=== PATIENT | male | born 1970 | race Caucasian/White ===

== ENCOUNTER 2017-10-03 07:18 | Inpatient (IN) ==
[2017-10-03] MEDS ORDERED: 0.9 % Sodium Chloride 1,000 ML IVC ONE ×5 (07:25→10:56)
[2017-10-03] MEDS ORDERED: 0.9 % Sodium Chloride 1,000 ML ONE (07:39)
--- NOTE | 2017-10-03 07:49 | Emergency Department Note ---
Disposition Clinical Impression: EDWAR (acute kidney injury), Ileus, Septic shock Sepsis Qualifiers: Sepsis type: sepsis due to unspecified organism Qualified Code(s): A41.9 - Sepsis, unspecified organism Disposition: Admitted As Inpatient Condition: Serious Time of Disposition: 11:48 General Adult HPI - General Stated complaint: Abdominal pain Time Seen by Provider: 10/03/17 07:25 Source: EMS Limitations: no limitations Nursing Notes Reviewed: Yes Vital Signs Reviewed: Yes - History of Present Illness HPI Narrative: Patient presents to the ED complaining of seeing wine a syncopal episode. Patient states when he woke up today he was seen why. He walked to the couch and passed out. States that having abdominal pain for a couple days. Was evaluated here 2 days ago. Denies passing any blood. Denies vomiting blood. States he is having diarrhea. No fever. Pain Scale: 8 - Related Data Home Medications Medication Instructions Recorded Confirmed Diazepam [Valium] 5 mg PO BID PRN 05/02/15 10/03/17 Meclizine [Antivert] 25 mg PO TID 05/02/15 10/03/17 Cholecalciferol (Vitamin D3) 50,000 unit PO MOFR 11/22/16 10/03/17 [Vitamin D] Diltiazem SR (12hr) [Cardizem SR] 120 mg PO DAILY 11/22/16 10/03/17 Folic Acid 1 mg PO DAILY 11/22/16 10/03/17 Lisinopril [Zestril] 20 mg PO DAILY 11/22/16 10/03/17 Atorvastatin [Lipitor] 10 mg PO HS 10/03/17 10/03/17 Previous Rx's Medication Instructions Recorded Metoprolol [Lopressor] 25 mg PO BID #60 tablet 06/16/15 Allergies Allergy/AdvReac Type Severity Reaction Status Date / Time Iodinated Contrast- Oral and AdvReac Mild Nausea Verified 10/03/17 08:09 IV Dye Hydromorphone [From Dilaudid] AdvReac Migraine Verified 08/29/17 14:50 Constitutional: Denies: fever Gastrointestinal: Reports: abdominal pain, nausea, diarrhea. Denies: vomiting Past Medical History - Past Medical History Medical history: Reports: hypertension Surgical history: Reports: cholecystectomy, orthopedic, other Psychiatric history: Reports: anxiety, depression - Social History Smoking Status: Never smoker Smokeless Tobacco Status: Yes Alcohol use: Reports: none Drug use: Reports: none Physical Exam Patient awake alert. Pale. Diaphoretic. Upper and mid abdominal tenderness. Exam limited secondary to obesity. Lungs clear. - General Limitations: no limitations General appearance: alert - Head Head exam: atraumatic - Eye Eye exam: Present: normal appearance - ENT ENT exam: normal exam - Neck Neck exam: Present: normal inspection - Chest Chest inspection: Present: normal inspection - Respiratory Respiratory exam: Present: normal lung sounds bilaterally - Cardiovascular Cardiovascular exam: Present: bradycardia - Abdominal Exam Abdominal exam: Present: soft, tenderness. Absent: distention, guarding, rebound Course - Reevaluation(s) Reevaluation #1: Rectal exam Hemoccult negative. EKG so some slight elevations in 2 inferior leads. The less than a millimeter. Patient is reevaluated and not having any chest pain or difficulty in breathing. His pain is on his abdomen reproducible. I attempted a bedside ultrasound but unable to visualize his aorta secondary to his large body habitus. We will repeat CT scan. At this time try and do decipher the patient has a true contrast allergy this listed. Alert T was called. Patient has 2 large-bore IVs and 2 L of normal saline infusing. Color is improved. Feeling better. Crash cart at bedside. Time: 07:49 Reevaluation #2: Review chart from last visit that showed an abnormal abdominal CT an elevated white blood cell count of 19,000. Question sepsis but unclear why he is bradycardic at this time. We will repeat an EKG when he returns from CT scan. Time: 08:25 Time: 08:42 - Consultations Consultation #2: Dr Mcmahon to see in colsult. Aware of EDWAR and contrast blous given. Time: 10:23 Consultation #3: Evaluated by ICU. No bed Available. Will order further IV fluids and reevaluate for possible step down admission if able to wean off Levophed. Time: 10:57 Additional Consultation(s): [address] Antoine called as he has seen the patient in the past Vital Signs Temperature 97.7 F 10/03/17 07:24 Pulse Rate 47 10/03/17 07:24 Respiratory Rate 14 10/03/17 07:24 Blood Pressure 66/37 10/03/17 07:24 O2 Sat by Pulse Oximetry 96 10/03/17 07:24 Temperature 97.7 F 10/03/17 07:24 Pulse Rate 51 10/03/17 18:00 Respiratory Rate 16 10/03/17 18:00 Blood Pressure 113/69 10/03/17 18:00 O2 Sat by Pulse Oximetry 100 10/03/17 18:00 Oxygen Delivery Oxygen Delivery Room Air,Nasal Cannula Procedures - Central Line Placement Right IJ Central Line Inserted*: Yes Central Line Insertion: emergent Consent Obtained: written consent Procedural Pause: verify patient name and date of , timeout performed per policy, vandana and assess the site, assemble equipment and verify supplies, perform hand hygiene Patient Placed on Monitor/Pulse Ox: Yes During the Procedure: clinician is wearing sterile gloves, cap, mask,& gown during insertion, sterile field and sterile technique are maintained, patient's face is covered with drape or mask and wearing a cap, everyone in room is wearing a mask Central Line Prep: Chlorhexidine scrub Prep the Procedure Site: apply chloraprep to the skin using a back and forth scrubbing motion, apply chloraprep for 30 seconds (upper body), 1-2 min ( femoral sites), allow prep to dry, drape the patient with a full body drape Local Anesthetic: lidocaine 1% Amount of anesthesia used (mL): 5 Ultrasound Used for Placement: Yes Central Line Lumen Inserted: triple Post Procedure: sutured in place, good blood return, all ports aspirated, flushed, capped, sterile dressing applied, guide wire removed and visualized Post Procedure X-Ray: tip of catheter in good position, no pneumothorax seen Patient Tolerated Procedure: well, no complications Clinician Assisting/Completing Checklist: Line placed by myself with complications. Time: 10:09 Medical Decision Making - Lab Data Result diagrams: 10/03/17 07:42 10/03/17 07:42 Lab Results 10/03/17 10/03/17 10/03/17 Range/Units 07:42 07:42 07:42 WBC 17.2 H (4.3-11.1) K/mcL RBC 4.56 (4.19-5.50) M/mcL Hgb 13.5 D (12.9-16.9) g/dL Hct 42.1 (37.5-50.1) % MCV 92.3 (83.0-100.0) fL MCH 29.6 (28.0-33.3) pg MCHC 32.1 (31.6-35.5) g/dL RDW 12.8 (11.5-14.5) % Plt Count 297 (140-400) K/mcL MPV 10.4 (9.4-12.4) fL Immature Gran % 0.6 (0-4) % Seg Neutrophils % 66.5 % Lymphocytes % 20.9 % Monocytes % 11.1 % Eosinophils % 0.6 % Basophils % 0.3 % Neutrophils # 11.5 H (1.6-8.9) K/mcL Lymphocytes # 3.6 (0.6-4.6) K/mcL Monocytes # 1.9 H (0.0-1.3) K/mcL Eosinophils # 0.1 (0.0-0.6) K/mcL Basophils # 0.1 (0.0-0.2) K/mcL PT (9.4-12.1) Seconds INR APTT (26.0-36.0) Seconds Sodium (136-145) mEq/L Potassium (3.5-5.1) mEq/L Chloride (98-107) mEq/L Carbon Dioxide (23-29) mEq/L BUN (6-20) mg/dL Creatinine (0.70-1.30) mg/dL Est GFR ( Amer) (> 60) Est GFR (Non-Af Amer) (> 60) BUN/Creatinine Ratio (6-26) Glucose (70-105) mg/dL Est Mean Plasma Glucose mg/dl Hemoglobin A1c ( - 5.6) % Calculated Osmolality (280-300) Lactic Acid 1.8 (0.5-2.2) mmol/L Calcium (8.6-10.3) mg/dL Total Bilirubin (0.3-1.0) mg/dL Direct Bilirubin (0.0-0.2) mg/dL Indirect Bilirubin (0.0-1.2) mg/dL AST (13-39) Units/L ALT (7-52) Units/L Alkaline Phosphatase (34-104) Units/L Troponin I < 0.03 (< 0.04) ng/mL Serum Total Protein (6.4-8.9) g/dL Albumin (3.5-5.7) g/dL Globulin (2.4-3.5) g/dL Albumin/Globulin Ratio (1.1-2.2) Amylase (29-103) Units/L Lipase (11-82) Units/L Urine Color (Yellow) Urine Clarity (Clear) Urine pH (5.0-8.0) pH Units Ur Specific [place] (1.010-1.025) Urine Protein (Neg-Trace) mg/dL Urine Glucose (UA) (Normal) mg/dL Urine Ketones (Negative) mg/dL Urine Blood (Negative) Urine Nitrite (Negative) Urine Bilirubin (Negative) Urine Urobilinogen (Normal) mg/dL Ur Leukocyte Esterase (Negative) Urine Microscopic RBC (0-3) per hpf Urine Microscopic WBC (0-3) per hpf Ur Squamous Epith Cells (None-Few) per lpf Urine Bacteria (None-Few) per hpf Hyaline Casts (None-Few) per lpf Granular Casts (None Seen) per lpf Ur Culture Indicated? (NO) Blood Type Antibody Screen 10/03/17 10/03/17 10/03/17 Range/Units 07:42 07:42 07:42 WBC (4.3-11.1) K/mcL RBC (4.19-5.50) M/mcL Hgb (12.9-16.9) g/dL Hct (37.5-50.1) % MCV (83.0-100.0) fL MCH (28.0-33.3) pg MCHC (31.6-35.5) g/dL RDW (11.5-14.5) % Plt Count (140-400) K/mcL MPV (9.4-12.4) fL Immature Gran % (0-4) % Seg Neutrophils % % Lymphocytes % % Monocytes % % Eosinophils % % Basophils % % Neutrophils # (1.6-8.9) K/mcL Lymphocytes # (0.6-4.6) K/mcL Monocytes # (0.0-1.3) K/mcL Eosinophils # (0.0-0.6) K/mcL Basophils # (0.0-0.2) K/mcL PT 13.7 H (9.4-12.1) Seconds INR 1.3 APTT 30.3 (26.0-36.0) Seconds Sodium 128 L (136-145) mEq/L Potassium 4.9 (3.5-5.1) mEq/L Chloride 99 (98-107) mEq/L Carbon Dioxide 19 L (23-29) mEq/L BUN 43 H (6-20) mg/dL Creatinine 4.48 H (0.70-1.30) mg/dL Est GFR ( Amer) 17 L (> 60) Est GFR (Non-Af Amer) 14 L (> 60) BUN/Creatinine Ratio 10 (6-26) Glucose 155 H (70-105) mg/dL Est Mean Plasma Glucose mg/dl Hemoglobin A1c ( - 5.6) % Calculated Osmolality 280 (280-300) Lactic Acid (0.5-2.2) mmol/L Calcium 9.1 (8.6-10.3) mg/dL Total Bilirubin 0.9 (0.3-1.0) mg/dL Direct Bilirubin 0.3 H (0.0-0.2) mg/dL Indirect Bilirubin 0.6 (0.0-1.2) mg/dL AST 26 (13-39) Units/L ALT 17 (7-52) Units/L Alkaline Phosphatase 79 (34-104) Units/L Troponin I (< 0.04) ng/mL Serum Total Protein 7.9 (6.4-8.9) g/dL Albumin 4.1 (3.5-5.7) g/dL Globulin 3.8 H (2.4-3.5) g/dL Albumin/Globulin Ratio 1.1 (1.1-2.2) Amylase 27 L (29-103) Units/L Lipase 16 (11-82) Units/L Urine Color (Yellow) Urine Clarity (Clear) Urine pH (5.0-8.0) pH Units Ur Specific [place] (1.010-1.025) Urine Protein (Neg-Trace) mg/dL Urine Glucose (UA) (Normal) mg/dL Urine Ketones (Negative) mg/dL Urine Blood (Negative) Urine Nitrite (Negative) Urine Bilirubin (Negative) Urine Urobilinogen (Normal) mg/dL Ur Leukocyte Esterase (Negative) Urine Microscopic RBC (0-3) per hpf Urine Microscopic WBC (0-3) per hpf Ur Squamous Epith Cells (None-Few) per lpf Urine Bacteria (None-Few) per hpf Hyaline Casts (None-Few) per lpf Granular Casts (None Seen) per lpf Ur Culture Indicated? (NO) Blood Type A POSITIVE Antibody Screen NEGATIVE 10/03/17 10/03/17 Range/Units 07:42 10:09 WBC (4.3-11.1) K/mcL RBC (4.19-5.50) M/mcL Hgb (12.9-16.9) g/dL Hct (37.5-50.1) % MCV (83.0-100.0) fL MCH (28.0-33.3) pg MCHC (31.6-35.5) g/dL RDW (11.5-14.5) % Plt Count (140-400) K/mcL MPV (9.4-12.4) fL Immature Gran % (0-4) % Seg Neutrophils % % Lymphocytes % % Monocytes % % Eosinophils % % Basophils % % Neutrophils # (1.6-8.9) K/mcL Lymphocytes # (0.6-4.6) K/mcL Monocytes # (0.0-1.3) K/mcL Eosinophils # (0.0-0.6) K/mcL Basophils # (0.0-0.2) K/mcL PT (9.4-12.1) Seconds INR APTT (26.0-36.0) Seconds Sodium (136-145) mEq/L Potassium (3.5-5.1) mEq/L Chloride (98-107) mEq/L Carbon Dioxide (23-29) mEq/L BUN (6-20) mg/dL Creatinine (0.70-1.30) mg/dL Est GFR ( Amer) (> 60) Est GFR (Non-Af Amer) (> 60) BUN/Creatinine Ratio (6-26) Glucose (70-105) mg/dL Est Mean Plasma Glucose 126 mg/dl Hemoglobin A1c 6.0 H ( - 5.6) % Calculated Osmolality (280-300) Lactic Acid (0.5-2.2) mmol/L Calcium (8.6-10.3) mg/dL Total Bilirubin (0.3-1.0) mg/dL Direct Bilirubin (0.0-0.2) mg/dL Indirect Bilirubin (0.0-1.2) mg/dL AST (13-39) Units/L ALT (7-52) Units/L Alkaline Phosphatase (34-104) Units/L Troponin I (< 0.04) ng/mL Serum Total Protein (6.4-8.9) g/dL Albumin (3.5-5.7) g/dL Globulin (2.4-3.5) g/dL Albumin/Globulin Ratio (1.1-2.2) Amylase (29-103) Units/L Lipase (11-82) Units/L Urine Color Yellow (Yellow) Urine Clarity Turbid A (Clear) Urine pH 5.5 (5.0-8.0) pH Units Ur Specific [place] > 1.030 H (1.010-1.025) Urine Protein 100 H (Neg-Trace) mg/dL Urine Glucose (UA) Normal (Normal) mg/dL Urine Ketones Negative (Negative) mg/dL Urine Blood Large H (Negative) Urine Nitrite Negative (Negative) Urine Bilirubin Small H (Negative) Urine Urobilinogen Normal (Normal) mg/dL Ur Leukocyte Esterase Negative (Negative) Urine Microscopic RBC 3-5 H (0-3) per hpf Urine Microscopic WBC 15-30 H (0-3) per hpf Ur Squamous Epith Cells Many H (None-Few) per lpf Urine Bacteria None Seen (None-Few) per hpf Hyaline Casts Moderate H (None-Few) per lpf Granular Casts Few H (None Seen) per lpf Ur Culture Indicated? NO (NO) Blood Type Antibody Screen Sepsis Reassessment Note - Evaluation Sepsis Screen: No Definite Risk Current Stage of Sepsis: septic shock - Focused Exam Date of Encounter: 10/03/17 Time of Encounter: 11:00 Vital Signs: Vital Signs Temp Pulse Resp BP Pulse Ox 10/03/17 10:06 48 14 101/52 98 10/03/17 08:51 48 16 86/45 99 10/03/17 08:40 48 14 95/50 99 10/03/17 08:14 47 14 66/25 99 10/03/17 07:45 46 14 66/37 99 10/03/17 07:24 97.7 F 47 14 66/37 96 Respiratory Exam: Present: CTA bilaterally Cardiovascular Exam: Present: RRR Capillary Refill: < 2 seconds Peripheral Pulse Strength: 2+ slightly diminished Peripheral Pulse Location: Radial Skin Exam: pale - Reassessment Comments Comments: Patient still required only with that at 1100. He has had 5 L of IV fluids. Hodge to be in septic shock from intra-abdominal source. Awaiting transfer to ICU.
[2017-10-03] MEDS ORDERED: Isovue-370 500 ML INFUS..BTL IV ONE (07:52)
[2017-10-03] MEDS ORDERED: Ondansetron 4 MG/2 ML VIAL IVP ONE (07:53)
[2017-10-03 08:06] LABS: Basophils # 0.1 K/mcL (0.0-0.2); Basophils % 0.3 %; Eosinophils # 0.1 K/mcL (0.0-0.6); Eosinophils % 0.6 %; Hematocrit 42.1 % (37.5-50.1); Immature Granulocytes % 0.6 % (0-4); Lymphocytes # 3.6 K/mcL (0.6-4.6); Lymphocytes % 20.9 %; Mean Corpuscular HGB Conc 32.1 g/dL (31.6-35.5); Mean Corpuscular Hemoglobin 29.6 pg (28.0-33.3); Mean Corpuscular Volume 92.3 fL (83.0-100.0); Mean Platelet Volume 10.4 fL (9.4-12.4); Monocytes # 1.9 K/mcL (0.0-1.3); Monocytes % 11.1 %; Neutrophils # 11.5 K/mcL (1.6-8.9); Platelet Count 297 K/mcL (140-400); Red Blood Count 4.56 M/mcL (4.19-5.50); Red Cell Distribution Width 12.8 % (11.5-14.5); Segmented Neutrophils % 66.5 %
[2017-10-03 08:30] LABS: INR 1.3; Prothrombin Time 13.7 Seconds (9.4-12.1)
[2017-10-03 08:32] LABS: Activated Partial Thrombo Time 30.3 Seconds (26.0-36.0)
[2017-10-03] MEDS: Norepinephrine 4 MG in D5% in Water 250 ML IVC SCH ×2 (09:11→23:40)
[2017-10-03 09:30] LABS: Hemoglobin 13.5 g/dL (12.9-16.9)
[2017-10-03 09:38] LABS: Albumin 4.1 g/dL (3.5-5.7); Albumin/Globulin Ratio 1.1 (1.1-2.2); Bilirubin,Direct 0.3 mg/dL (0.0-0.2); Bilirubin,Indirect 0.6 mg/dL (0.0-1.2); Bilirubin,Total 0.9 mg/dL (0.3-1.0); Calcium 9.1 mg/dL (8.6-10.3); Globulin 3.8 g/dL (2.4-3.5); Potassium 4.9 mEq/L (3.5-5.1); Total Protein 7.9 g/dL (6.4-8.9)
[2017-10-03] MEDS ORDERED: Piperacillin/Tazobactam 3.375 GM in 0.9 % Sodium Chloride Mini Bag 100 ML IVPB ONE (10:12)
[2017-10-03 10:14] LABS: Bilirubin,Urine Small (Negative); Blood,Urine Large (Negative); Clarity,Urine Turbid (Clear); Color,Urine Yellow (Yellow); Glucose,Urine (UA) Normal (Normal); Ketones,Urine Negative (Negative); Leukocyte Esterase,Urine Negative (Negative); Nitrite,Urine Negative (Negative); PH,Urine 5.5 pH Units (5.0-8.0); Protein,Urine 100 mg/dL (Neg-Trace); Specific Gravity,Urine > 1.030 (1.010-1.025); Urobilinogen,Urine Normal (Normal)
[2017-10-03 10:18] LABS: Bacteria,Urine None Seen per hpf (None-Few); Squamous Epithelial Cell,Urine Many per lpf (None-Few); WBC,Urine 15-30 per hpf (0-3)
[2017-10-03 10:33] LABS: Granular Casts,Urine Few per lpf (None Seen); Hyaline Casts,Urine Moderate per lpf (None-Few)
[2017-10-03] MEDS ORDERED: Piperacillin/Tazobactam 3.375 GM in 0.9 % Sodium Chloride Mini Bag 100 ML IVPB SCH (11:00)
--- NOTE | 2017-10-03 12:57 | General Surgery Consult Note ---
<Bassam Johnson - Last Filed: 10/03/17 19:45> Date of Encounter: 10/03/17 Time of Encounter: 11:30 Assessment and Plan (1) Abdominal pain Current Visit: Yes Status: Acute As described in HPI. Patient is several years S/P cholecystectomy. Based on history and work up thus far, unlikely to be complete SBO, PUD, GI bleed, pancreatitis, or biliary stasis. Has had ongoing passage of flatus and BMs. CT demonstrates dilated loops of small bowel without clear transition point Top differentials include partial small bowel obstruction & adynamic ileus ( more likely). Plan: - clear liquid diet - serial abdominal exams - symptomatic management per primary team - will continue to follow Hypotension/Bradycardia: BP still tenuous after 5 L of normal saline and norepinephrine infusion. Possibly due to hypovolemic status, but other etiologies should be considered. Defer to primary team for further workup. Qualifiers: Abdominal location: periumbilical Qualified Code(s): R10.33 - Periumbilical pain History of Present Illness Consult date: 10/03/17 History of present illness: 47-year-old male admitted for abdominal pain (partial small bowel obstruction vs ileus) as evidenced on CT findings. Also hypotensive in the ED requiring 5 L of normal saline as well as norepinephrine drip.. For the past 3 to 4 days, patient states he has had this sharp periumbilical pain. 1st noticed as gradual onset several hours after eating dinner. Has gradually worsened over time. Pain is described as moderate to severe, sharp/ stabbing, constant, non-radiating, and non-migratory. Patient notes no provocative or palliative factors. Patient denies any previous pain similar to this. Patient denies any sick contacts at home. Patient denies nausea/ vomiting. Has had diarrhea which is normal for him since cholecystectomy approximately 2 to [address] Smith. We was seen in emergency department on 10/01/[address] scan demonstrating dilated loops of small bowel without any transition point suggestive of ileus; patient states was sent home with Bentyl which did not help. Presented the emergency department today via EMS due to the fact that he has newly developed episodic syncope whenever he tries to stand up and walk in addition to his ongoing abdominal pain. ED course: patient has been significantly bradycardic throughout, and has had hypotensive/tenuous blood pressures after 5 L of normal saline as well as norepinephrine infusion. Lab evaluation in the ED significant for white cell count of 17.2, sodium of 128, BUN of 43, and creatinine of 4.48 (baseline well- established in [place] runs around 1.10). H/H normal, other electrolytes normal, total bilirubin 0.9, transaminases normal, ALP normal, troponin <0.03, amylase/lipase WNL, and lactate 1.8. CT today demonstrated similar findings to prior CT favoring ileus over possible developing partial small bowel obstruction. Patient transferred to ICU bed 8 with central line and still on norepinephrine. ED gave IV Zosyn prior to transfer. Past Med Surg Social Fam HX - Past Medical History Source: patient Medical history: hypertension Psychiatric history: anxiety, depression - Past Surgical History Surgical History: cholecystectomy, orthopedic, other - Social History Smoking Status: Never smoker Smokeless Tobacco Status: Yes Alcohol use: none Drug use: none - Family History Father Adopted: No Family Member Ethnicity: Non- Living Status: Hx Family Cardiac Disorders: Yes (passed from massive heart attack) Hx Family Respiratory Disorders: No Hx Family Cancer: No Hx Family GI Disorders: No Hx Family Endocrine Disorder: No Hx Family Neuromuscular Disorders: No Hx Family Neurologic Disorders: No Hx Family HEENT Disorders: No Hx Family Autoimmune Disorders: No Medications and Allergies Diazepam [Valium] 5 mg PO BID PRN 05/02/15 [History] Meclizine [Antivert] 25 mg PO TID 05/02/15 [History] Metoprolol [Lopressor] 25 mg PO BID #60 tablet 06/16/15 [Rx] Cholecalciferol (Vitamin D3) [Vitamin D] 50,000 unit PO MOFR 11/22/16 [History] Diltiazem SR (12hr) [Cardizem SR] 120 mg PO DAILY 11/22/16 [History] Folic Acid 1 mg PO DAILY 11/22/16 [History] Lisinopril [Zestril] 20 mg PO DAILY 11/22/16 [History] Atorvastatin [Lipitor] 10 mg PO HS 10/03/17 [History] 3 Allergy/AdvReac Type Severity Reaction Status Date / Time Iodinated Contrast- Oral and AdvReac Mild Nausea Verified 10/03/17 08:09 IV Dye Hydromorphone [From Dilaudid] AdvReac Migraine Verified 08/29/17 14:50 Review of Systems All systems PM: Denies epigastric or retro sternal burning sensation. Denies any pale stools, melanotic stools, gross blood in stools, or acute constipation. Patient passing flatus and having bowel movements as recently as morning of 10/02/2017. Denies fevers, chills, sweats, chest pain. General Surgery Exam Initial Vital Signs Temp Pulse Resp BP Pulse Ox 97.7 F 47 14 66/37 96 10/03/17 07:24 10/03/17 07:24 10/03/17 07:24 10/03/17 07:24 10/03/17 07:24 GENERAL: alert and comfortably supplying. No acute distress. Answers questions appropriately. HEENT: normocephalic, no scleral icterus, no conjunct pallor, PER, EOMi, oropharynx somewhat dry CV: bradycardic, reg rhythm, no murmurs or gallops, no JVD RESPIRATORY: CTAB without wheezes, rales, or rhonchi ABD: obese, no acute skin change, soft, periumbilical tenderness, no distention/ rigidity, no peritoneal signs EXTREMITY: grossly normal motor function, no pedal edema, peripheral pulses 2+ b /l NEUROLOGIC EXAM: AOx3, obeys commands, no speech deficits. PSYCHIATRIC: normal mood and affect SKIN: no gross lesions, rashes, or skin changes Exam Initial Vital Signs Temp Pulse Resp BP Pulse Ox 97.7 F 47 14 66/37 96 10/03/17 07:24 10/03/17 07:24 10/03/17 07:24 10/03/17 07:24 10/03/17 07:24 Results - Labs 10/03/17 07:42 10/03/17 07:42 Abnormal lab results WBC 17.2 K/mcL (4.3-11.1) H 10/03/17 07:42 Neutrophils # 11.5 K/mcL (1.6-8.9) H 10/03/17 07:42 Monocytes # 1.9 K/mcL (0.0-1.3) H 10/03/17 07:42 PT 13.7 Seconds (9.4-12.1) H 10/03/17 07:42 Sodium 128 mEq/L (136-145) L 10/03/17 07:42 Carbon Dioxide 19 mEq/L (23-29) L 10/03/17 07:42 BUN 43 mg/dL (6-20) H 10/03/17 07:42 Creatinine 4.48 mg/dL (0.70-1.30) H 10/03/17 07:42 Est GFR ( Amer) 17 (> 60) L 10/03/17 07:42 Est GFR (Non-Af Amer) 14 (> 60) L 10/03/17 07:42 Glucose 155 mg/dL (70-105) H 10/03/17 07:42 Direct Bilirubin 0.3 mg/dL (0.0-0.2) H 10/03/17 07:42 Globulin 3.8 g/dL (2.4-3.5) H 10/03/17 07:42 Amylase 27 Units/L (29-103) L 10/03/17 07:42 Urine Clarity Turbid (Clear) A 10/03/17 10:09 Ur Specific [place] > 1.030 (1.010-1.025) H 10/03/17 10:09 Urine Protein 100 mg/dL (Neg-Trace) H 10/03/17 10:09 Urine Blood Large (Negative) H 10/03/17 10:09 Urine Bilirubin Small (Negative) H 10/03/17 10:09 Urine Microscopic RBC 3-5 per hpf (0-3) H 10/03/17 10:09 Urine Microscopic WBC 15-30 per hpf (0-3) H 10/03/17 10:09 Ur Squamous Epith Cells Many per lpf (None-Few) H 10/03/17 10:09 Hyaline Casts Moderate per lpf (None-Few) H 10/03/17 10:09 Granular Casts Few per lpf (None Seen) H 10/03/17 10:09 All other labs normal. Consult Discharge Plan - Plan Referrals: Delmar Mcbride MD [Primary Care Provider] - <Delmar Hernandez T - Last Filed: 10/03/17 19:52> Date of Encounter: 10/03/17 Review of Systems All systems PM: The remainder of the systems were reviewed and are negative General Surgery Exam Initial Vital Signs Temp Pulse Resp BP Pulse Ox 97.7 F 47 14 66/37 96 10/03/17 07:24 10/03/17 07:24 10/03/17 07:24 10/03/17 07:24 10/03/17 07:24 Exam Initial Vital Signs Temp Pulse Resp BP Pulse Ox 97.7 F 47 14 66/37 96 10/03/17 07:24 10/03/17 07:24 10/03/17 07:24 10/03/17 07:24 10/03/17 07:24 Results - Labs 10/03/17 07:42 10/03/17 07:42 Abnormal lab results WBC 17.2 K/mcL (4.3-11.1) H 10/03/17 07:42 Neutrophils # 11.5 K/mcL (1.6-8.9) H 10/03/17 07:42 Monocytes # 1.9 K/mcL (0.0-1.3) H 10/03/17 07:42 PT 13.7 Seconds (9.4-12.1) H 10/03/17 07:42 Sodium 128 mEq/L (136-145) L 10/03/17 07:42 Carbon Dioxide 19 mEq/L (23-29) L 10/03/17 07:42 BUN 43 mg/dL (6-20) H 10/03/17 07:42 Creatinine 4.48 mg/dL (0.70-1.30) H 10/03/17 07:42 Est GFR ( Amer) 17 (> 60) L 10/03/17 07:42 Est GFR (Non-Af Amer) 14 (> 60) L 10/03/17 07:42 Glucose 155 mg/dL (70-105) H 10/03/17 07:42 POC Glucose 148 mg/dL (70-99) H 10/03/17 18:39 Hemoglobin A1c 6.0 % (-5.6) H 10/03/17 07:42 Direct Bilirubin 0.3 mg/dL (0.0-0.2) H 10/03/17 07:42 Globulin 3.8 g/dL (2.4-3.5) H 10/03/17 07:42 Amylase 27 Units/L (29-103) L 10/03/17 07:42 Urine Clarity Turbid (Clear) A 10/03/17 10:09 Ur Specific [place] > 1.030 (1.010-1.025) H 10/03/17 10:09 Urine Protein 100 mg/dL (Neg-Trace) H 10/03/17 10:09 Urine Blood Large (Negative) H 10/03/17 10:09 Urine Bilirubin Small (Negative) H 10/03/17 10:09 Urine Microscopic RBC 3-5 per hpf (0-3) H 10/03/17 10:09 Urine Microscopic WBC 15-30 per hpf (0-3) H 10/03/17 10:09 Ur Squamous Epith Cells Many per lpf (None-Few) H 10/03/17 10:09 Hyaline Casts Moderate per lpf (None-Few) H 10/03/17 10:09 Granular Casts Few per lpf (None Seen) H 10/03/17 10:09 All other labs normal. - Attending Attestation I examined this patient and my medical decision-making was reviewed with the Resident Physician. I agree with the documented findings, disposition and treatment plan as described except to the extent set forth below. The patient is seen and evaluated on evening rounds with the resident. His abdominal examination is not impressive. He has very mild central abdominal discomfort. I personally reviewed the CAT scan images. Findings are consistent with ileus. I think it is reasonable to allow him to have clear liquids. We will continue to follow along with you clinically on a daily basis until the patient improves. Delmar Hernandez MD FACS
--- NOTE | 2017-10-03 14:01 | Pulmonology History & Physical ---
Addendum entered and electronically signed by Ryland Seo DO 10/03/17 15:17: - Attending Attestation Addendum: Best catheter placed in ED and continued on presentation to ICU for accurate I/Os in the setting of acute renal failure. Original Note: <Ryland Seo - Last Filed: 10/03/17 15:16> Date of Encounter: 10/03/17 Time of Encounter: 14:01 Assessment and Plan (1) Shock Current visit: Yes Status: Acute - Likely related to hypovolemia secondary to copious diarrhea - Patient received 5 L bolus of normal saline emergency department, will give additional 1 L as well as maintenance fluids - GI panel pending, C. difficile PCR pending Plan - Continue vasopressor as needed - Continue supportive care - Start Cipro, Flagyl day #1 (2) Ileus Current visit: Yes Status: Acute - As demonstrated on CT in emergency department on 10/03/17 - Report states that likely ileus versus less likely developing small bowel obstruction - Gen. surgery consult emergency department - Possible source of patient's nausea, pain Plan - Supportive care at this time - Further management per general surgery (3) Acute kidney injury Current visit: Yes Status: Acute - BUNs/creatinine of 43/4.48 on presentation to emergency department - Possibly secondary to severe dehydration in addition to his shock in the setting of diarrhea - Nephrology was consult that in the emergency room and recommended increased fluid boluses - Baseline creatinine of 1.3-1.4 Plan - Continue fluid boluses total 6 L at this time - Maintenance fluid of 150 mL per hour - Daily labs (4) Diarrhea Current visit: Yes Status: Acute - Possible etiologies include infectious versus viral - Patient does report a chronic history of diarrhea since his cholecystectomy, however does state that is increased from previous - GI panel and C. difficile PCR pending Plan - Continue supportive management as above - Continue fluid resuscitation - Antibiotics as above Qualifiers: Diarrhea type: unspecified type Qualified Code(s): R19.7 - Diarrhea, unspecified (5) Leukocytosis Current visit: Yes Status: Acute - WBC of 17.2 on presentation - Likely related to stress reaction versus less likely infectious etiology - Does not meet SIRS criteria at this time - Chest x-ray and urinalysis did not show signs of infection Plan Continue to monitor with fluid resuscitation Qualifiers: Leukocytosis type: unspecified Qualified Code(s): D72.829 - Elevated white blood cell count, unspecified (6) Obesity Current visit: Yes Status: Acute Would benefit from outpatient weight loss Qualifiers: Obesity type: due to excess calories Obesity classification: adult class 3 (BMI >= 40) Serious obesity comorbidity presence: without serious comorbidity Body mass index: BMI 45.0-49.9 Qualified Code(s): E66.01 - Morbid (severe) obesity due to excess calories; Z68.42 - Body mass index (BMI) 45.0-49.9, adult (7) Abdominal pain Current visit: Yes Status: Acute As above for ileus and diarrhea Qualifiers: Abdominal location: periumbilical Qualified Code(s): R10.33 - Periumbilical pain (8) DVT prophylaxis Current visit: Yes Status: Acute Heparin subcutaneous History of Present Illness Chief complaint: abdominal pain HPI: Mr. Nelson is a 47 year old male with past medical history of hypertension, anemia, atrial fibrillation, obesity presents to emergency room with complaint of right lower quadrant abdominal pain 3 days. He also admits to having 2 syncopal episodes in the past couple days. He does state that he is also been having diarrhea for the past 3 days and this time. He states that he does have chronic diarrhea ever since his gallbladder was removed 2 years ago however it has been worse recently and watery. Denies any recent antibiotic use or sick contacts. Denies any symptoms of chest pain, palpitations. Does admit to nausea with 1 episode of vomiting, lightheadedness, dizziness. States that he has been trying to keep his fluid intake up. Also states that he is on 3 or 4 blood pressure medications. In the emergency department, vital signs are significant for hypotension and bradycardia with a BP of 66/37 and heart rate of 47. He was given a 4 L normal saline bolus and remained hypotensive. Right internal jugular central line was placed at that time and levophed started. Labs are significant for WBC of 17.2 , BUNs/creatinine of 43/4.48. Nephrology was consulted in the emergency department. CTA of the chest, abdomen/pelvis was obtained to rule out dissection and showed pulmonary embolus of the right lower lobe which is likely chronic, ileus versus developing SBO, cholecystectomy. General surgery was also consulted in the emergency department. Patient was admitted to intensive care unit for further evaluation and management. Past Med Surg Social Fam HX - Past Medical History Medical history: hypertension Psychiatric history: anxiety, depression - Past Surgical History Surgical History: cholecystectomy, orthopedic, other - Social History Smoking Status: Never smoker Smokeless Tobacco Status: Yes Alcohol use: none Drug use: none - Family History Father Adopted: No Family Member Ethnicity: Non- Living Status: Hx Family Cardiac Disorders: Yes (passed from massive heart attack) Hx Family Respiratory Disorders: No Hx Family Cancer: No Hx Family GI Disorders: No Hx Family Endocrine Disorder: No Hx Family Neuromuscular Disorders: No Hx Family Neurologic Disorders: No Hx Family HEENT Disorders: No Hx Family Autoimmune Disorders: No Medications and Allergies Diazepam [Valium] 5 mg PO BID PRN 05/02/15 [History] Meclizine [Antivert] 25 mg PO TID 05/02/15 [History] Metoprolol [Lopressor] 25 mg PO BID #60 tablet 06/16/15 [Rx] Cholecalciferol (Vitamin D3) [Vitamin D] 50,000 unit PO MOFR 11/22/16 [History] Diltiazem SR (12hr) [Cardizem SR] 120 mg PO DAILY 11/22/16 [History] Folic Acid 1 mg PO DAILY 11/22/16 [History] Lisinopril [Zestril] 20 mg PO DAILY 11/22/16 [History] Atorvastatin [Lipitor] 10 mg PO HS 10/03/17 [History] 3 Allergy/AdvReac Type Severity Reaction Status Date / Time Iodinated Contrast- Oral and AdvReac Mild Nausea Verified 10/03/17 08:09 IV Dye Hydromorphone [From Dilaudid] AdvReac Migraine Verified 08/29/17 14:50 All Systems: The remainder of the systems were reviewed and are negative Review of Systems: - Constitutional: Denies fevers, chills, weight loss, admits to generalized fatigue - EENT: Denies vision changes/blurriness - CVS: Denies chest pain, palpitations, BRADLEY, orthopnea, edema, PND, - Pulm: Denies SOB, cough, sputum, hematemesis, wheezing - GI: Admits to abdominal pain, nausea, vomiting, diarrhea. Denies aanorexia, constipation, melena - : Denies dysuria, increased frequency, urgency, hematuria, - MSK: Denies joint pain, limited ROM - Skin: Denies rashes, ulcers, color changes, - Neuro: Denies MORGAN, paresthesias, focal deficits, ataxia, Physical Examination Vital Signs: Vital Signs, Last 4 Hours Pulse Resp BP Pulse Ox 10/03/17 13:53 16 99/55 10/03/17 12:32 52 14 97/53 100 Gen.: Vitals noted. No acute distress. AAOx3, resting comfortably in bed HEENT: PERRL/EOMI, oropharynx clear, Normocephalic, atraumatic, mildly dry mucous membranes Cardiac: Bradycardic, regular rhythm, no murmur, +S1/S2 Pulmonary: CTA bilaterally, no wheezes, rales or rhonchi, equal chest expansion Abdomen: soft, mildly tender to palpation with most prominent of right lower quadrant, markedly hypoactive bowel sounds, no guarding, no rebound. MSK: ROM intact, no joint swelling noted Extremities: no BLE edema, nontender calf, no cyanosis or clubbing Neuro: A&Ox3, moves all extremities, no focal deficits Psych: Appropriate mood and behavior Results - Laboratory Findings CBC and BMP: 10/03/17 07:42 10/03/17 07:42 PT/INR, D-dimer PT 13.7 Seconds (9.4-12.1) H 10/03/17 07:42 Abnormal lab findings: Abnormal lab results WBC 17.2 K/mcL (4.3-11.1) H 10/03/17 07:42 Neutrophils # 11.5 K/mcL (1.6-8.9) H 10/03/17 07:42 Monocytes # 1.9 K/mcL (0.0-1.3) H 10/03/17 07:42 PT 13.7 Seconds (9.4-12.1) H 10/03/17 07:42 Sodium 128 mEq/L (136-145) L 10/03/17 07:42 Carbon Dioxide 19 mEq/L (23-29) L 10/03/17 07:42 BUN 43 mg/dL (6-20) H 10/03/17 07:42 Creatinine 4.48 mg/dL (0.70-1.30) H 10/03/17 07:42 Est GFR ( Amer) 17 (> 60) L 10/03/17 07:42 Est GFR (Non-Af Amer) 14 (> 60) L 10/03/17 07:42 Glucose 155 mg/dL (70-105) H 10/03/17 07:42 Direct Bilirubin 0.3 mg/dL (0.0-0.2) H 10/03/17 07:42 Globulin 3.8 g/dL (2.4-3.5) H 10/03/17 07:42 Amylase 27 Units/L (29-103) L 10/03/17 07:42 Urine Clarity Turbid (Clear) A 10/03/17 10:09 Ur Specific [place] > 1.030 (1.010-1.025) H 10/03/17 10:09 Urine Protein 100 mg/dL (Neg-Trace) H 10/03/17 10:09 Urine Blood Large (Negative) H 10/03/17 10:09 Urine Bilirubin Small (Negative) H 10/03/17 10:09 Urine Microscopic RBC 3-5 per hpf (0-3) H 10/03/17 10:09 Urine Microscopic WBC 15-30 per hpf (0-3) H 10/03/17 10:09 Ur Squamous Epith Cells Many per lpf (None-Few) H 10/03/17 10:09 Hyaline Casts Moderate per lpf (None-Few) H 10/03/17 10:09 Granular Casts Few per lpf (None Seen) H 10/03/17 10:09 <Bear Solano M - Last Filed: 10/03/17 16:22> Date of Encounter: 10/03/17 History of Present Illness HPI: Mr. Nelson is a 47 year old male All Systems: The remainder of the systems were reviewed and are negative Physical Examination Vital Signs: Vital Signs, Last 4 Hours Pulse Resp BP Pulse Ox 10/03/17 15:45 48 16 96/60 98 10/03/17 15:30 47 16 101/54 95 10/03/17 15:15 42 16 93/49 99 10/03/17 15:02 44 16 101/50 100 10/03/17 14:49 99 10/03/17 14:45 56 18 110/62 99 10/03/17 14:31 100 10/03/17 14:30 98/54 10/03/17 14:15 58 18 101/54 99 10/03/17 14:05 65 18 95/58 10/03/17 13:53 16 99/55 10/03/17 12:32 52 14 97/53 100 Results - Laboratory Findings CBC and BMP: 10/03/17 07:42 10/03/17 07:42 PT/INR, D-dimer PT 13.7 Seconds (9.4-12.1) H 10/03/17 07:42 Abnormal lab findings: Abnormal lab results WBC 17.2 K/mcL (4.3-11.1) H 10/03/17 07:42 Neutrophils # 11.5 K/mcL (1.6-8.9) H 10/03/17 07:42 Monocytes # 1.9 K/mcL (0.0-1.3) H 10/03/17 07:42 PT 13.7 Seconds (9.4-12.1) H 10/03/17 07:42 Sodium 128 mEq/L (136-145) L 10/03/17 07:42 Carbon Dioxide 19 mEq/L (23-29) L 10/03/17 07:42 BUN 43 mg/dL (6-20) H 10/03/17 07:42 Creatinine 4.48 mg/dL (0.70-1.30) H 10/03/17 07:42 Est GFR ( Amer) 17 (> 60) L 10/03/17 07:42 Est GFR (Non-Af Amer) 14 (> 60) L 10/03/17 07:42 Glucose 155 mg/dL (70-105) H 10/03/17 07:42 Hemoglobin A1c 6.0 % (-5.6) H 10/03/17 07:42 Direct Bilirubin 0.3 mg/dL (0.0-0.2) H 10/03/17 07:42 Globulin 3.8 g/dL (2.4-3.5) H 10/03/17 07:42 Amylase 27 Units/L (29-103) L 10/03/17 07:42 Urine Clarity Turbid (Clear) A 10/03/17 10:09 Ur Specific [place] > 1.030 (1.010-1.025) H 10/03/17 10:09 Urine Protein 100 mg/dL (Neg-Trace) H 10/03/17 10:09 Urine Blood Large (Negative) H 10/03/17 10:09 Urine Bilirubin Small (Negative) H 10/03/17 10:09 Urine Microscopic RBC 3-5 per hpf (0-3) H 10/03/17 10:09 Urine Microscopic WBC 15-30 per hpf (0-3) H 10/03/17 10:09 Ur Squamous Epith Cells Many per lpf (None-Few) H 10/03/17 10:09 Hyaline Casts Moderate per lpf (None-Few) H 10/03/17 10:09 Granular Casts Few per lpf (None Seen) H 10/03/17 10:09 - Attending Attestation I examined this patient and my medical decision-making was reviewed with the Resident Physician. I agree with the documented findings, disposition and treatment plan as described except to the extent set forth below. Patient seen and examined. I was called by the emergency room physician to evaluate the patient and he was evaluated in the emergency room as well as in the ICU. Patient required low dose of Levophed and recommended more fluid while he was in the emergency room, he still required vasopressor and patient was transferred to ICU. Labs, radiology, chart personally reviewed. 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 GI: Nutrition per dietary and GI prophylaxis per routine. Surgery has been consulted. Heme: DVT prophylaxis per routine ID: Continue antibiotics and plan to de-escalation Renal; urine out put and renal funtion reviewed. The patient was acute kidney injury and nephrology has been consulted. Patient is requiring more fluid and hoping he will recover and he will also need renal ultrasound. Endorcine: blood glucose is monitored Lines: all lines checked and no evidence of infections Skin: skin care to prevent pressure ulcers per nursing routine care I spent 35 min of Critical Care time with this patient. It involved decision making of high complexity to assess, manipulate, and support vital organ system failure and/or to prevent further life threatening deterioration of the patient' s condition. The time involved in the performance of separately reportable procedures was not counted toward critical care time.
[2017-10-03] MEDS ORDERED: Naloxone 0.4 MG/ML INJ IVP PRN (14:05)
[2017-10-03] MEDS ORDERED: D5% in Water 1,000 ML IVC PRN (14:10)
[2017-10-03] MEDS ORDERED: Dextrose Gel 15 GM/37.5 ML TUBE PO PRN ×2 (14:10)
[2017-10-03] MEDS ORDERED: *HR* Dextrose 50 % in Water (Syg) 50 ML SYRINGE IVP PRN (14:10)
[2017-10-03] MEDS ORDERED: 0.9 % Sodium Chloride 1,000 ML IVC SCH (14:15)
[2017-10-03 14:53] LABS: Estimated Average Glucose 126 mg/dl
[2017-10-03] MEDS: 0.9 % Sodium Chloride 1,000 ML IVC SCH ×2 (15:46→23:39)
--- NOTE | 2017-10-03 15:51 | Electrocardiograph Report ---
[address] [place], [place] [address] Test Date: 2017-10-03 Pat Name: Dae Nelson Department: 103 Room: [facility] Gender: M Master [place]: : 1970 Requested By: Ro See Order Number: [id number] Reading MD: Ryann Bhatia Measurements Intervals [place] Rate: 45 P: 16 NM: 208 QRS: 24 QRSD: 94 T: 16 QT: 495 QTc: 452 Interpretive Statements SINUS BRADYCARDIA Electronically Signed On 10-03-2017 15:49:59 EDT by Ryann Bhatia
[2017-10-03] MEDS: MetroNIDAZOLE 500 MG/100 ML 500 MG/100 ML BAG IVPB SCH ×2 (16:43→23:40)
--- NOTE | 2017-10-03 17:02 | Nephrology Consult Note ---
Date of Encounter: 10/03/17 Time of Encounter: 16:30 Assessment and Plan (1) Acute kidney injury Current Visit: No Status: Resolved EDWAR in most likely in setting septic shock, ileus, ACEI, GI loss contributing, IV contrast could worsen or lengthen process superimposed on CKD, baseline creat 1.2-1.6. Continue IV fluids. No immediate need for HD. Accurate I&O's. Avoid nephrotoxins. Will continue to monitor. History of Present Illness - Reason for Consult Acute Kidney Injury - History of Present Illness Mr. Nelson is a 47 year old male who presented to ER this morning with periumbilical abdominal pain and syncopal episode. He had also been seen in ER two days prior for abdominal pain. CT at that visit suggested ileus and sent home on Bentyl. Other PMH- hypertension, cholecystectomy, orthopedic, anxiety, depression. On arrival to ER, hypotensive, over course 5L iv fluids given and norepinephrine infusion. WBC 17.2, sodium of 128, K 4.9, BUN of 43, and creatinine of 4.48. Lactic acid 1.8. Repeat CT with similar findings favoring ileus over developing partial small bowel obstruction. At time of consult, patient in ICU 8, alert, oriented x 3. 0.9 NS at 150 cc/hr. Norepi drip. SBP 100. Bradycardia 48-58. Indwelling sands cath with 1000cc clear yellow urine in bag. Noted prior labs creat baseline 1.2-1.6 from 10/2015 to present. Patient admits known CKD with PCP monitoring. He has prior hx of EDWAR in Apr 2015 in setting of GI losses. He states although having abdominal pain for past several days, he has maintained his oral intake of food and fluids. He does have chronic loose stools post cholecystectomy 2-3 years ago. However, admits 10 watery stools yesterday and one episode of vomiting late last night. He denies NSAID use. He denies diuretics. He admits recently told by PCP borderline diabetes, not on any oral hypoglycemics. Hypertension since age 18, under good control with Lisinopril, which in events has been stopped. He denies proteinuria, hematuria, renal stones, or UTI's. He denies any LE swelling, or shortness of breath. Past Med Surg Social Fam HX - Past Medical History Medical history: hypertension Psychiatric history: anxiety, depression - Past Surgical History Surgical History: cholecystectomy, orthopedic, other - Social History Smoking Status: Never smoker Smokeless Tobacco Status: Yes Alcohol use: none Drug use: none - Family History Father Adopted: No Family Member Ethnicity: Non- Living Status: Hx Family Cardiac Disorders: Yes (passed from massive heart attack) Hx Family Respiratory Disorders: No Hx Family Cancer: No Hx Family GI Disorders: No Hx Family Endocrine Disorder: No Hx Family Neuromuscular Disorders: No Hx Family Neurologic Disorders: No Hx Family HEENT Disorders: No Hx Family Autoimmune Disorders: No Medications and Allergies Diazepam [Valium] 5 mg PO BID PRN 05/02/15 [History] Meclizine [Antivert] 25 mg PO TID 05/02/15 [History] Metoprolol [Lopressor] 25 mg PO BID #60 tablet 06/16/15 [Rx] Cholecalciferol (Vitamin D3) [Vitamin D] 50,000 unit PO MOFR 11/22/16 [History] Diltiazem SR (12hr) [Cardizem SR] 120 mg PO DAILY 11/22/16 [History] Folic Acid 1 mg PO DAILY 11/22/16 [History] Lisinopril [Zestril] 20 mg PO DAILY 11/22/16 [History] Atorvastatin [Lipitor] 10 mg PO HS 10/03/17 [History] 3 Allergy/AdvReac Type Severity Reaction Status Date / Time Iodinated Contrast- Oral and AdvReac Mild Nausea Verified 10/03/17 08:09 IV Dye Hydromorphone [From Dilaudid] AdvReac Migraine Verified 08/29/17 14:50 Review of Systems All Systems: reviewed and no additional remarkable complaints except as stated Exam - Vital Signs Vital signs: Initial Vital Signs Temp Pulse Resp BP Pulse Ox 97.7 F 47 14 66/37 96 10/03/17 07:24 10/03/17 07:24 10/03/17 07:24 10/03/17 07:24 10/03/17 07:24 Vital Signs - Last 8 Hours Pulse Resp BP Pulse Ox 10/03/17 15:45 48 16 96/60 98 10/03/17 15:30 47 16 101/54 95 10/03/17 15:15 42 16 93/49 99 10/03/17 15:02 44 16 101/50 100 10/03/17 14:49 99 05/24/18 14:45 56 18 110/62 99 10/03/17 14:31 100 10/03/17 14:30 98/54 10/03/17 14:15 58 18 101/54 99 10/03/17 14:05 65 18 95/58 10/03/17 13:53 16 99/55 10/03/17 12:32 52 14 97/53 100 Intake and Output 10/03/17 10/03/17 10/03/17 07:59 15:59 23:59 Intake Total 1100 / 4100 Output Total 750 / 750 Balance 350 / 3350 Intake: IV Fluids 1100 / 1100 0.9 % Sodium Chloride 1,000 ML 1000 / 1000 @ 3750 mls/hr IVC .Q16M ONE Rx# :[id number] Zosyn 3.375 GM In 0.9 % Sodium 100 / 100 Chloride (Mini-Bag +) 100 ML @ 25 mls/hr IVPB ONCE ONE Rx#: [id number] Output: Catheter 750 / 750 - General Appearance General appearance: well-developed, well-nourished, appears started age, obese EENT: mucous membranes moist Neck: no JVD Respiratory: clear Cardiology: no edema Additional Comments: bradycardia Gastrointestinal: hypoactive bowel sounds, tenderness Additional Comments: soft Integumentary: warm and dry Neurologic: alert and oriented x3 Results - Lab Results 10/03/17 07:42 10/03/17 07:42 Most recent lab results Calcium 9.1 mg/dL (8.6-10.3) 10/03/17 07:42 Consult Discharge Plan - Plan Referrals: Delmar Mcbride MD [Primary Care Provider] -
[2017-10-03] MEDS ORDERED: Insulin LISPRO 300 UNITS/3 ML VIAL SQ SCH (18:00)
[2017-10-03] MEDS: *HR* Heparin 5,000 UNIT/ML VIAL SQ SCH (21:51)
[2017-10-04 04:25] LABS: Basophils % 0.3 %; Eosinophils # 0.1 K/mcL (0.0-0.6); Hematocrit 35.2 % (37.5-50.1); Immature Granulocytes % 0.2 % (0-4); Lymphocytes # 2.9 K/mcL (0.6-4.6); Lymphocytes % 20.6 %; Mean Corpuscular HGB Conc 33.2 g/dL (31.6-35.5); Mean Corpuscular Hemoglobin 30.8 pg (28.0-33.3); Mean Corpuscular Volume 92.6 fL (83.0-100.0); Mean Platelet Volume 10.5 fL (9.4-12.4); Monocytes # 1.7 K/mcL (0.0-1.3); Monocytes % 12.3 %; Neutrophils # 9.1 K/mcL (1.6-8.9); Nucleated Red Blood Cells 0.1 /100 WBC (0); Platelet Count 233 K/mcL (140-400); Red Cell Distribution Width 12.5 % (11.5-14.5); Segmented Neutrophils % 65.6 %
[2017-10-04 04:26] LABS: Hemoglobin 11.7 g/dL (12.9-16.9)
[2017-10-04 04:45] LABS: Calcium 8.3 mg/dL (8.6-10.3); Magnesium 2.1 mg/dL (1.6-2.6); Potassium 4.3 mEq/L (3.5-5.1)
[2017-10-04] MEDS: *HR* Heparin 5,000 UNIT/ML VIAL SQ SCH ×3 (04:54→20:01)
--- NOTE | 2017-10-04 06:50 | General Surgery Progress Note ---
<Bassam Johnson - Last Filed: 10/04/17 08:30> Date of Encounter: 10/04/17 Time of Encounter: 06:48 - Assessment and Plan (1) Abdominal pain Current Visit: Yes Status: Acute As described in HPI. Patient is several years S/P cholecystectomy. Based on history and work up thus far, unlikely to be complete SBO, PUD, GI bleed, pancreatitis, or biliary stasis. Continues to have flatus and BMs (see I/Os). CT demonstrates dilated loops of small bowel without clear transition point patient tolerated clear liquid diet with no bowel provocation or return of symptoms; in fact he showed improvement. Partial small bowel obstruction vs adynamic ileus (most likely). Plan: - recommend primary team advance diet as tolerated at their discretion - given the patient has shown significant improvement today, no surgical needs seems necessary at this time - surgery service will sign off at this time - re-consult if surgical need arises Hypotension/Bradycardia: BP still tenuous on norepinephrine. Defer to primary team for further workup. Qualifiers: Abdominal location: periumbilical Qualified Code(s): R10.33 - Periumbilical pain Subjective Narrative: No new complaints. Tolerated clear liquid diet without provocation of symptoms. Denies overnight fevers, nausea, vomiting, distention, bloating. Still passing flatus. Abdominal pain still present, but significantly reduced. No overnight events. Objective Vital Signs - Last 8 Hours Temp Pulse Resp BP Pulse Ox 10/04/17 05:30 98.0 F 10/04/17 05:00 63 16 90/49 97 10/04/17 04:00 62 16 84/49 98 10/04/17 03:00 62 16 89/46 97 10/04/17 02:00 61 16 84/50 98 10/04/17 01:00 61 16 83/48 98 10/04/17 00:52 98.5 F 10/04/17 00:00 98.5 F 58 16 87/44 97 10/03/17 23:00 57 16 73/58 98 Intake and Output 10/03/17 10/03/17 10/04/17 15:59 23:59 07:59 Intake Total 1100 / 4100 1554 / 1554 100 / 100 Output Total 750 / 750 450 / 450 2925 / 2925 Balance 350 / 3350 1104 / 1104 -2825 / -2825 Intake: IV Fluids 1100 / 1100 1554 / 1554 100 / 100 0.9 % Sodium Chloride 1,000 ML 1000 / 1000 1000 / 1000 @ 150 mls/hr IVC .Q6H40M [facility] Rx #:[id number] Levophed 4 MG In Dextrose 5% 254 / 254 250 ML @ 5 MCG/MIN 19.05 mls/hr IVC CONT [facility] Rx#:[id number] Cipro Premix 400 MG/200 ML 400 200 / 200 mg In 200 ml @ 200 mls/hr IVPB Q12HR [facility] Rx#:[id number] Flagyl Premix 500 MG/100 ML 500 100 / 100 100 / 100 mg In 100 ml @ 100 mls/hr IVPB Q8HR [facility] Rx#:[id number] Zosyn 3.375 GM In 0.9 % Sodium 100 / 100 Chloride (Mini-Bag +) 100 ML @ 25 mls/hr IVPB ONCE ONE Rx#: [id number] Output: Catheter 750 / 750 450 / 450 2925 / 2925 Other: Stool Size Small Stool Consistency liquid Stool Color Brown # Bowel Movements 1 Weight 154.6 kg Blood Glucose* 148 Patient Weight 10/04/17 23:59 Weight 154.6 kg GENERAL: alert and comfortably supplying. No acute distress. Answers questions appropriately. HEENT: normocephalic, no scleral icterus, no conjunct pallor, PER, EOMi, oropharynx somewhat dry CV: bradycardic, reg rhythm, no murmurs or gallops, no JVD RESPIRATORY: CTAB without wheezes, rales, or rhonchi ABD: obese, no acute skin change, soft, periumbilical tenderness, no distention/ rigidity, no peritoneal signs EXTREMITY: grossly normal motor function, no pedal edema, peripheral pulses 2+ b /l NEUROLOGIC EXAM: AOx3, obeys commands, no speech deficits. PSYCHIATRIC: normal mood and affect SKIN: no gross lesions, rashes, or skin changes - Labs 10/04/17 04:03 10/04/17 04:03 Diabetes panel 10/04/17 Range/Units 04:03 Sodium 132 L (136-145) mEq/L Potassium 4.3 (3.5-5.1) mEq/L Chloride 109 H (98-107) mEq/L Carbon Dioxide 18 L (23-29) mEq/L BUN 31 H (6-20) mg/dL Creatinine 2.37 H (0.70-1.30) mg/dL Glucose 129 H (70-105) mg/dL Calcium 8.3 L (8.6-10.3) mg/dL Calcium panel 10/04/17 Range/Units 04:03 Calcium 8.3 L (8.6-10.3) mg/dL Pituitary panel 10/04/17 Range/Units 04:03 Sodium 132 L (136-145) mEq/L Potassium 4.3 (3.5-5.1) mEq/L Chloride 109 H (98-107) mEq/L Carbon Dioxide 18 L (23-29) mEq/L BUN 31 H (6-20) mg/dL Creatinine 2.37 H (0.70-1.30) mg/dL Glucose 129 H (70-105) mg/dL Calcium 8.3 L (8.6-10.3) mg/dL Adrenal panel 10/04/17 Range/Units 04:03 Sodium 132 L (136-145) mEq/L Potassium 4.3 (3.5-5.1) mEq/L Chloride 109 H (98-107) mEq/L Carbon Dioxide 18 L (23-29) mEq/L BUN 31 H (6-20) mg/dL Creatinine 2.37 H (0.70-1.30) mg/dL Glucose 129 H (70-105) mg/dL Calcium 8.3 L (8.6-10.3) mg/dL Consult Discharge Plan - Plan Referrals: Delmar Mcbride MD [Primary Care Provider] - <Delmar Hernandez - Last Filed: 10/04/17 14:52> Date of Encounter: 10/04/17 Objective Vital Signs - Last 8 Hours Temp Pulse Resp BP Pulse Ox 10/04/17 13:33 57 16 108/59 98 10/04/17 12:16 60 16 107/56 98 10/04/17 11:35 60 16 117/59 98 10/04/17 10:36 67 16 116/70 100 10/04/17 09:30 70 16 96/50 99 10/04/17 08:52 98.1 F 10/04/17 08:35 69 16 95/45 98 Intake and Output 10/03/17 10/04/17 10/04/17 23:59 07:59 15:59 Intake Total 1554 / 1554 1100 / 1100 2454 / 2454 Output Total 450 / 450 2925 / 2925 1100 / 1100 Balance 1104 / 1104 -1825 / -1825 1354 / 1354 Intake: IV Fluids 1554 / 1554 1100 / 1100 2454 / 2454 0.9 % Sodium Chloride 1,000 ML 1000 / 1000 1000 / 1000 2000 / 2000 @ 3750 mls/hr IVC .Q16M ONE Rx# :[id number] Levophed 4 MG In Dextrose 5% 254 / 254 154 / 154 250 ML @ 5 MCG/MIN 19.05 mls/hr IVC CONT [facility] Rx#:[id number] Cipro Premix 400 MG/200 ML 400 200 / 200 200 / 200 mg In 200 ml @ 200 mls/hr IVPB Q12HR [facility] Rx#:[id number] Flagyl Premix 500 MG/100 ML 500 100 / 100 100 / 100 100 / 100 mg In 100 ml @ 100 mls/hr IVPB Q8HR [facility] Rx#:[id number] Output: Catheter 450 / 450 2925 / 2925 1100 / 1100 Other: Stool Size Small Small Stool Consistency liquid liquid Stool Color Brown Brown # Bowel Movements 1 Weight 154.6 kg Blood Glucose* 148 Patient Weight 10/04/17 23:59 Weight 154.6 kg - Labs 10/04/17 04:03 10/04/17 04:03 Diabetes panel 10/04/17 Range/Units 04:03 Sodium 132 L (136-145) mEq/L Potassium 4.3 (3.5-5.1) mEq/L Chloride 109 H (98-107) mEq/L Carbon Dioxide 18 L (23-29) mEq/L BUN 31 H (6-20) mg/dL Creatinine 2.37 H (0.70-1.30) mg/dL Glucose 129 H (70-105) mg/dL Calcium 8.3 L (8.6-10.3) mg/dL Calcium panel 10/04/17 Range/Units 04:03 Calcium 8.3 L (8.6-10.3) mg/dL Pituitary panel 10/04/17 Range/Units 04:03 Sodium 132 L (136-145) mEq/L Potassium 4.3 (3.5-5.1) mEq/L Chloride 109 H (98-107) mEq/L Carbon Dioxide 18 L (23-29) mEq/L BUN 31 H (6-20) mg/dL Creatinine 2.37 H (0.70-1.30) mg/dL Glucose 129 H (70-105) mg/dL Calcium 8.3 L (8.6-10.3) mg/dL Adrenal panel 10/04/17 Range/Units 04:03 Sodium 132 L (136-145) mEq/L Potassium 4.3 (3.5-5.1) mEq/L Chloride 109 H (98-107) mEq/L Carbon Dioxide 18 L (23-29) mEq/L BUN 31 H (6-20) mg/dL Creatinine 2.37 H (0.70-1.30) mg/dL Glucose 129 H (70-105) mg/dL Calcium 8.3 L (8.6-10.3) mg/dL - Attending Attestation I examined this patient and my medical decision-making was reviewed with the Resident Physician. I agree with the documented findings, disposition and treatment plan as described except to the extent set forth below. The patient is seen and evaluated on morning rounds with the resident. He appears to have have had very good resolution of his abdominal pain. He may advance his diet. There is no evidence of bowel obstruction. Surgery will sign off. Delmar Hernandez MD FACS
[2017-10-04] MEDS: 0.9 % Sodium Chloride 1,000 ML IVC SCH ×2 (08:13→11:39)
[2017-10-04] MEDS ORDERED: Albumin 25% 25gram/100mL 25 GM/100 ML IV.SOLN IVPB ONE (08:28)
[2017-10-04] MEDS ORDERED: 0.9 % Sodium Chloride 1,000 ML IVC ONE (08:29)
[2017-10-04] MEDS: MetroNIDAZOLE 500 MG/100 ML 500 MG/100 ML BAG IVPB SCH ×2 (08:38→20:00)
--- NOTE | 2017-10-04 08:57 | Pulmonology Progress Note ---
<DominickBear rivera M - Last Filed: 10/04/17 10:21> Date of Encounter: 10/04/17 Objective PUL Vital signs: Last Vital Signs Temp 98.1 F 10/04/17 08:52 Pulse 69 10/04/17 08:35 Resp 16 10/04/17 08:35 BP 95/45 10/04/17 08:35 Pulse Ox 98 10/04/17 08:35 Results - Laboratory Findings CBC and BMP: 10/04/17 04:03 10/04/17 04:03 PT/INR, D-dimer PT 13.7 Seconds (9.4-12.1) H 10/03/17 07:42 Abnormal lab findings: Abnormal lab results WBC 13.8 K/mcL (4.3-11.1) H 10/04/17 04:03 RBC 3.80 M/mcL (4.19-5.50) L 10/04/17 04:03 Hgb 11.7 g/dL (12.9-16.9) L D 10/04/17 04:03 Hct 35.2 % (37.5-50.1) L 10/04/17 04:03 Neutrophils # 9.1 K/mcL (1.6-8.9) H 10/04/17 04:03 Monocytes # 1.7 K/mcL (0.0-1.3) H 10/04/17 04:03 Nucleated RBCs/100 WBC 0.1 /100 WBC (0) H 10/04/17 04:03 PT 13.7 Seconds (9.4-12.1) H 10/03/17 07:42 Sodium 132 mEq/L (136-145) L 10/04/17 04:03 Chloride 109 mEq/L (98-107) H 10/04/17 04:03 Carbon Dioxide 18 mEq/L (23-29) L 10/04/17 04:03 BUN 31 mg/dL (6-20) H 10/04/17 04:03 Creatinine 2.37 mg/dL (0.70-1.30) H 10/04/17 04:03 Est GFR ( Amer) 36 (> 60) L 10/04/17 04:03 Est GFR (Non-Af Amer) 29 (> 60) L 10/04/17 04:03 Glucose 129 mg/dL (70-105) H 10/04/17 04:03 POC Glucose 148 mg/dL (70-99) H 10/03/17 18:39 Hemoglobin A1c 6.0 % (-5.6) H 10/03/17 07:42 Calcium 8.3 mg/dL (8.6-10.3) L 10/04/17 04:03 Direct Bilirubin 0.3 mg/dL (0.0-0.2) H 10/03/17 07:42 Globulin 3.8 g/dL (2.4-3.5) H 10/03/17 07:42 Amylase 27 Units/L (29-103) L 10/03/17 07:42 Urine Clarity Turbid (Clear) A 10/03/17 10:09 Ur Specific [place] > 1.030 (1.010-1.025) H 10/03/17 10:09 Urine Protein 100 mg/dL (Neg-Trace) H 10/03/17 10:09 Urine Blood Large (Negative) H 10/03/17 10:09 Urine Bilirubin Small (Negative) H 10/03/17 10:09 Urine Microscopic RBC 3-5 per hpf (0-3) H 10/03/17 10:09 Urine Microscopic WBC 15-30 per hpf (0-3) H 10/03/17 10:09 Ur Squamous Epith Cells Many per lpf (None-Few) H 10/03/17 10:09 Hyaline Casts Moderate per lpf (None-Few) H 10/03/17 10:09 Granular Casts Few per lpf (None Seen) H 10/03/17 10:09 - Clinical Findings Intake & Output: Intake & Output 10/03/17 10/04/17 10/04/17 23:59 07:59 15:59 Intake Total 1554 / 1554 1100 / 1100 Output Total 450 / 450 2925 / 2925 1100 / 1100 Balance 1104 / 1104 -1825 / -1825 -1100 / -1100 Weight 154.6 kg Consult Discharge Plan - Plan Referrals: Delmar Mcbride MD [Primary Care Provider] - - Attending Attestation I examined this patient and my medical decision-making was reviewed with the Resident Physician. I agree with the documented findings, disposition and treatment plan as described except to the extent set forth below. Patient seen and examined. Labs, radiology, chart personally reviewed. Agree with resident's history and physical, assessment, plan with following comments: PHYSICAL ANTHROPOLOGIST: Patient follows commands, Pulmonary: Acceptable oxygenation and ventilation Cardiovascular: Remain hypotensive and will try more fluid and Albumin GI: Nutrition per dietary and GI prophylaxis per routine Heme: DVT prophylaxis per routine ID: Continue antibiotics and plan to de-escalation Renal; urine out put and renal funtion reviewed. Change IVF to LR Endorcine: blood glucose is monitored Lines: all lines checked and no evidence of infections Skin: skin care to prevent pressure ulcers per nursing routine care If patient comes off Levophed, will transfer to floor. <Ryland Seo - Last Filed: 10/04/17 14:47> Date of Encounter: 10/04/17 Time of Encounter: 08:57 Assessment and Plan (1) Shock Current Visit: Yes Status: Acute - Likely related to hypovolemia secondary to copious diarrhea - Patient received 6L of normal saline since admission, as well as maintenance fluid - Still requiring vasopressor support, attempting to wean - GI panel pending, C. difficile PCR negative - + 4L since admission Plan - Continue vasopressor as needed - And albumin 2 attempt to wean off vasopressor support, additional 1 L bolus - Continue maintenance fluids at 150 per hour - Continue supportive care - Start Cipro, Flagyl day #2 (2) Ileus Current Visit: Yes Status: Acute - As demonstrated on CT in emergency department on 10/03/17 - Report states that likely ileus versus less likely developing small bowel obstruction - Gen. surgery consult emergency department - Started on clear liquid diet by surgery yesterday, patient is tolerating well - Per surgery note, can advance diet as tolerated - Patient reports no residual pain, nausea; however he does continue to complain of diarrhea Plan - Supportive care at this time - Further management per general surgery- per note will follow at a distance (3) Acute kidney injury Current Visit: Yes Status: Acute - BUN/creatinine of 43/4.48 on presentation to emergency department, improved to 31/2.37 - Greatly improved with fluid resuscitation - Possibly secondary to severe dehydration in addition to his shock in the setting of diarrhea - Nephrology was consult that in the emergency room and recommended increased fluid boluses - Baseline creatinine of 1.3-1.4 Plan - Continue fluid boluses total 6 L at this time, additional 1 L today - Maintenance fluid of 150 mL per hour - Daily labs (4) Diarrhea Current Visit: Yes Status: Acute - Possible etiologies include infectious versus viral - Patient does report a chronic history of diarrhea since his cholecystectomy, however does state that is increased from previous - GI panel and C. difficile PCR negative Plan - Continue supportive management as above - Continue fluid resuscitation - Start Imodium 4 times a day when necessary - Antibiotics as above Qualifiers: Diarrhea type: unspecified type Qualified Code(s): R19.7 - Diarrhea, unspecified (5) Leukocytosis Current Visit: Yes Status: Acute - WBC of 17.2 on presentation, improved to 13.8 - Likely related to stress reaction versus less likely infectious etiology - Does not meet SIRS criteria at this time - Chest x-ray and urinalysis did not show signs of infection Plan Continue to monitor with fluid resuscitation Cipro and Flagyl as above Qualifiers: Leukocytosis type: unspecified Qualified Code(s): D72.829 - Elevated white blood cell count, unspecified (6) Obesity Current Visit: Yes Status: Acute Would benefit from outpatient weight loss Qualifiers: Obesity type: due to excess calories Obesity classification: adult class 3 (BMI >= 40) Serious obesity comorbidity presence: without serious comorbidity Body mass index: BMI 45.0-49.9 Qualified Code(s): E66.01 - Morbid (severe) obesity due to excess calories; Z68.42 - Body mass index (BMI) 45.0-49.9, adult (7) Abdominal pain Current Visit: Yes Status: Resolved As above for ileus and diarrhea Qualifiers: Abdominal location: periumbilical Qualified Code(s): R10.33 - Periumbilical pain (8) DVT prophylaxis Current Visit: Yes Status: Acute Heparin subcutaneous Subjective Principal diagnosis: Ileus, EDWAR Interval history: Patient seen and examined at bedside this morning. He states that overall he is feeling much better and only has occasional abdominal fullness. Denies any symptoms of pain, nausea, vomiting, fevers, chills. States that he was tolerating his clear liquid diet well without any complaints at this time. No events overnight. Objective PUL Vital signs: Last Vital Signs Temp 98.1 F 10/04/17 08:52 Pulse 63 10/04/17 05:00 Resp 16 10/04/17 05:00 BP 90/49 10/04/17 05:00 Pulse Ox 97 10/04/17 05:00 Gen.: Vitals noted. No acute distress. AAOx3 HEENT: PERRL/EOMI, oropharynx clear, Normocephalic, atraumatic, MMM Cardiac: RRR, no murmur, +S1/S2 Pulmonary: CTA bilaterally, no wheezes, rales or rhonchi, equal chest expansion Abdomen: soft, nontender, BS noted, no guarding, no rebound. Mildly distended MSK: ROM intact, no joint swelling noted Extremities: no BLE edema, nontender calf, no cyanosis or clubbing Neuro: A&Ox3, moves all extremities, no focal deficits Psych: Appropriate mood and behavior Results - Laboratory Findings CBC and BMP: 10/04/17 04:03 10/04/17 04:03 PT/INR, D-dimer PT 13.7 Seconds (9.4-12.1) H 10/03/17 07:42 Abnormal lab findings: Abnormal lab results WBC 13.8 K/mcL (4.3-11.1) H 10/04/17 04:03 RBC 3.80 M/mcL (4.19-5.50) L 10/04/17 04:03 Hgb 11.7 g/dL (12.9-16.9) L D 10/04/17 04:03 Hct 35.2 % (37.5-50.1) L 10/04/17 04:03 Neutrophils # 9.1 K/mcL (1.6-8.9) H 10/04/17 04:03 Monocytes # 1.7 K/mcL (0.0-1.3) H 10/04/17 04:03 Nucleated RBCs/100 WBC 0.1 /100 WBC (0) H 10/04/17 04:03 PT 13.7 Seconds (9.4-12.1) H 10/03/17 07:42 Sodium 132 mEq/L (136-145) L 10/04/17 04:03 Chloride 109 mEq/L (98-107) H 10/04/17 04:03 Carbon Dioxide 18 mEq/L (23-29) L 10/04/17 04:03 BUN 31 mg/dL (6-20) H 10/04/17 04:03 Creatinine 2.37 mg/dL (0.70-1.30) H 10/04/17 04:03 Est GFR ( Amer) 36 (> 60) L 10/04/17 04:03 Est GFR (Non-Af Amer) 29 (> 60) L 10/04/17 04:03 Glucose 129 mg/dL (70-105) H 10/04/17 04:03 POC Glucose 148 mg/dL (70-99) H 10/03/17 18:39 Hemoglobin A1c 6.0 % (-5.6) H 10/03/17 07:42 Calcium 8.3 mg/dL (8.6-10.3) L 10/04/17 04:03 Direct Bilirubin 0.3 mg/dL (0.0-0.2) H 10/03/17 07:42 Globulin 3.8 g/dL (2.4-3.5) H 10/03/17 07:42 Amylase 27 Units/L (29-103) L 10/03/17 07:42 Urine Clarity Turbid (Clear) A 10/03/17 10:09 Ur Specific [place] > 1.030 (1.010-1.025) H 10/03/17 10:09 Urine Protein 100 mg/dL (Neg-Trace) H 10/03/17 10:09 Urine Blood Large (Negative) H 10/03/17 10:09 Urine Bilirubin Small (Negative) H 10/03/17 10:09 Urine Microscopic RBC 3-5 per hpf (0-3) H 10/03/17 10:09 Urine Microscopic WBC 15-30 per hpf (0-3) H 10/03/17 10:09 Ur Squamous Epith Cells Many per lpf (None-Few) H 10/03/17 10:09 Hyaline Casts Moderate per lpf (None-Few) H 10/03/17 10:09 Granular Casts Few per lpf (None Seen) H 10/03/17 10:09 - Clinical Findings Intake & Output: Intake & Output 10/03/17 10/04/17 10/04/17 23:59 07:59 15:59 Intake Total 1554 / 1554 1100 / 1100 Output Total 450 / 450 2925 / 2925 1100 / 1100 Balance 1104 / 1104 -1825 / -1825 -1100 / -1100 Weight 154.6 kg
[2017-10-04 12:12] LABS: Adenovirus F 40/41 PCR Not detected (Not detect); Astrovirus PCR Not detected (Not detect); C.difficile Toxin A/B by PCR Not detected (Not detect); Campylobacter by PCR Not detected (Not detect); Cryptosporidium by PCR Not detected (Not detect); Cyclospora cayetanensis PCR Not detected (Not detect); E. coli O157 by PCR Not detected (Not detect); Entamoeba histolytica PCR Not detected (Not detect); Enteroaggregative E.coli(EAEC) Not detected (Not detect); Enteropathogenic E.coli(EPEC) Not detected (Not detect); Enterotoxigenic E.coli (ETEC) Not detected (Not detect); Giardia lamblia PCR Not detected (Not detect); Norovirus GI/GII PCR Not detected (Not detect); Plesiomonas shigelloides PCR Not detected (Not detect); Rotavirus A PCR Not detected (Not detect); Salmonella PCR Not detected (Not detect); Sapovirus PCR Not detected (Not detect); Shig/EnteroinvasiveE coli EIEC Not detected (Not detect); Shigalike tox-prod E coli STEC Not detected (Not detect); Vibrio PCR Not detected (Not detect); Vibrio cholerae PCR Not detected (Not detect); Yersinia enterocolitica PCR Not detected (Not detect)
--- NOTE | 2017-10-04 12:52 | Nephrology Progress Note ---
Date of Encounter: 10/04/17 Time of Encounter: 12:10 - Assessment and Plan (1) Acute kidney injury Current Visit: No Status: Resolved EDWAR in most likely in setting septic shock, ileus, ACEI, GI loss contributing, IV contrast could worsen or lengthen process superimposed on CKD, baseline creat 1.2-1.6. Renal fct improving, creat 2.37. K 4.3. Documented urine output 1200cc. Continue IV fluids. Accurate I&O's. Avoid nephrotoxins. Will continue to monitor. Subjective Interval history: Resting quietly in bed, watching tv. Tolerating clear liquid diet. Norepi infusion, [id number] Objective - Vital Signs Vital signs: Vital Signs Temp Pulse Resp BP Pulse Ox 10/04/17 12:16 60 16 107/56 98 10/04/17 11:35 60 16 117/59 98 10/04/17 10:36 67 16 116/70 100 10/04/17 09:30 70 16 96/50 99 10/04/17 08:52 98.1 F 10/04/17 08:35 69 16 95/45 98 10/04/17 05:30 98.0 F 10/04/17 05:00 63 16 90/49 97 10/04/17 04:00 62 16 84/49 98 10/04/17 03:00 62 16 89/46 97 10/04/17 02:00 61 16 84/50 98 10/04/17 01:00 61 16 83/48 98 10/04/17 00:52 98.5 F 10/04/17 00:00 98.5 F 58 16 87/44 97 10/03/17 23:00 57 16 73/58 98 10/03/17 22:00 71 16 88/38 99 10/03/17 21:53 97.7 F 10/03/17 21:00 53 16 104/53 98 10/03/17 20:00 97.7 F 47 16 103/62 98 10/03/17 19:50 99 10/03/17 19:00 43 16 77/54 99 10/03/17 18:00 51 16 113/69 100 10/03/17 17:15 50 18 122/62 100 10/03/17 17:03 44 18 112/61 100 10/03/17 16:45 46 16 112/72 100 10/03/17 16:30 60 18 98/86 99 10/03/17 16:00 43 16 93/53 99 10/03/17 15:45 48 16 96/60 98 10/03/17 15:30 47 16 101/54 95 10/03/17 15:15 42 16 93/49 99 10/03/17 15:02 44 16 101/50 100 10/03/17 14:49 99 10/03/17 14:45 56 18 110/62 99 10/03/17 14:31 100 10/03/17 14:30 98/54 10/03/17 14:15 58 18 101/54 99 10/03/17 14:05 65 18 95/58 10/03/17 13:53 16 99/55 Intake and Output 10/03/17 10/04/17 10/04/17 23:59 07:59 15:59 Intake Total 1554 / 1554 1100 / 1100 2454 / 2454 Output Total 450 / 450 2925 / 2925 1100 / 1100 Balance 1104 / 1104 -1825 / -1825 1354 / 1354 Intake: IV Fluids 1554 / 1554 1100 / 1100 2454 / 2454 0.9 % Sodium Chloride 1,000 ML 1000 / 1000 1000 / 1000 2000 / 2000 @ 3750 mls/hr IVC .Q16M ONE Rx# :[id number] Levophed 4 MG In Dextrose 5% 254 / 254 154 / 154 250 ML @ 5 MCG/MIN 19.05 mls/hr IVC CONT [facility] Rx#:[id number] Cipro Premix 400 MG/200 ML 400 200 / 200 200 / 200 mg In 200 ml @ 200 mls/hr IVPB Q12HR [facility] Rx#:[id number] Flagyl Premix 500 MG/100 ML 500 100 / 100 100 / 100 100 / 100 mg In 100 ml @ 100 mls/hr IVPB Q8HR [facility] Rx#:[id number] Output: Catheter 450 / 450 2925 / 2925 1100 / 1100 Other: Stool Size Small Small Stool Consistency liquid liquid Stool Color Brown Brown # Bowel Movements 1 Weight 154.6 kg Blood Glucose* 148 Patient Weight 10/04/17 23:59 Weight 154.6 kg - General Appearance General appearance: Present: well-developed, well-nourished, appears started age , obese EENT: Present: mucous membranes moist Neck: Present: no JVD Respiratory: Present: clear Cardiology: Present: no edema, regular rate, regular rhythm Gastrointestinal: Present: hypoactive bowel sounds, tenderness Integumentary: Present: warm and dry Neurologic: Present: alert and oriented x3 - Lab 10/04/17 04:03 10/04/17 04:03 Most recent lab results Calcium 8.3 mg/dL (8.6-10.3) L 10/04/17 04:03 Magnesium 2.1 mg/dL (1.6-2.6) 10/04/17 04:03 Consult Discharge Plan - Plan Referrals: Delmar Mcbride MD [Primary Care Provider] -
[2017-10-04] MEDS ORDERED: Potassium Phosphate 44 MEQ in 0.9 % Sodium Chloride 250 ML IVPB PRN (14:48)
[2017-10-04] MEDS ORDERED: *HR* Dextrose 50 % in Water (Syg) 50 ML SYRINGE IVP PRN (16:45)
[2017-10-04] MEDS ORDERED: D5% in Water 1,000 ML IVC PRN (16:45)
[2017-10-04] MEDS ORDERED: 0.9 % Sodium Chloride 1,000 ML IVC SCH (16:45)
[2017-10-04] MEDS ORDERED: Naloxone 0.4 MG/ML INJ IVP PRN (16:45)
[2017-10-04] MEDS ORDERED: Dextrose Gel 15 GM/37.5 ML TUBE PO PRN ×2 (16:45)
[2017-10-05] MEDS: MetroNIDAZOLE 500 MG/100 ML 500 MG/100 ML BAG IVPB SCH ×3 (03:39→18:32)
[2017-10-05 04:27] LABS: Basophils # 0.1 K/mcL (0.0-0.2); Basophils % 0.5 %; Eosinophils # 0.2 K/mcL (0.0-0.6); Eosinophils % 1.9 %; Hematocrit 33.9 % (37.5-50.1); Hemoglobin 11.1 g/dL (12.9-16.9); Immature Granulocytes % 0.4 % (0-4); Lymphocytes # 2.2 K/mcL (0.6-4.6); Lymphocytes % 22.8 %; Mean Corpuscular HGB Conc 32.7 g/dL (31.6-35.5); Mean Corpuscular Volume 91.6 fL (83.0-100.0); Mean Platelet Volume 10.4 fL (9.4-12.4); Platelet Count 183 K/mcL (140-400); Red Cell Distribution Width 12.7 % (11.5-14.5); Segmented Neutrophils % 63.4 %
[2017-10-05 04:47] LABS: BUN/Creatinine Ratio 11 (6-26); Blood Urea Nitrogen 15 mg/dL (6-20); Calcium 8.7 mg/dL (8.6-10.3); Carbon Dioxide 18 mEq/L (23-29); Chloride 112 mEq/L (98-107); Glucose 102 mg/dL (70-105); Magnesium 1.9 mg/dL (1.6-2.6); Osmolality,Calculated 287 (280-300); Potassium 3.9 mEq/L (3.5-5.1); Sodium 138 mEq/L (136-145); eGFR For African Americans > 60 (> 60); eGFR For Non-African Americans 53 (> 60)
[2017-10-05] MEDS: *HR* Heparin 5,000 UNIT/ML VIAL SQ SCH ×3 (05:31→22:08)
--- NOTE | 2017-10-05 07:58 | Electrocardiograph Report ---
[address] [address] Test Date: 2017-10-03 Pat Name: Dae Nelson Department: 103 Room: [facility] Gender: M Store [employer] Help: LUISA : 1970 Requested By: Dena Calixto Order Number: [id number] Reading MD: Collin Echeverria Measurements Intervals [place] Rate: 47 P: 11 VA: 201 QRS: 21 QRSD: 96 T: 31 QT: 448 QTc: 411 Interpretive Statements SINUS BRADYCARDIA Electronically Signed On 10-05-2017 7:57:11 EDT by Collin Echeverria
--- NOTE | 2017-10-05 08:22 | Nephrology Progress Note ---
Date of Encounter: 10/05/17 Time of Encounter: 08:00 - Assessment and Plan (1) Acute kidney injury Current Visit: No Status: Resolved EDWAR in most likely in setting septic shock, ileus, ACEI, GI loss contributing, IV contrast could worsen or lengthen process superimposed on CKD, baseline creat 1.2-1.6. Renal fct improving, creat 1.41. K 3.0.. Documented urine output 8150cc. Will decrease IV fluids 0.9 NS 75cc/hr. Accurate I&O's. Avoid nephrotoxins. Will continue to monitor. Subjective Principal diagnosis: Ileus, EDWAR Interval history: Resting quietly in bed, watching tv. Tolerating clear liquid diet. SBP 108-119, AR 60's. Objective - Vital Signs Vital signs: Vital Signs Temp Pulse Resp BP Pulse Ox 10/05/17 07:52 97.9 F 10/05/17 06:00 60 20 117/70 97 10/05/17 05:00 61 10/05/17 04:00 67 18 119/70 100 10/05/17 03:53 97.6 F 10/05/17 03:00 63 10/05/17 02:00 59 20 108/63 96 10/05/17 01:00 60 10/05/17 00:30 61 10/05/17 00:09 98.4 F 10/05/17 00:00 61 18 118/66 96 10/04/17 23:00 60 97 10/04/17 22:06 64 16 114/66 96 10/04/17 21:00 60 18 100 10/04/17 20:00 62 18 109/76 100 10/04/17 19:30 62 16 99 10/04/17 19:00 97.9 F 10/04/17 18:19 64 16 111/62 99 10/04/17 17:21 77 16 106/62 100 10/04/17 16:44 16 10/04/17 15:56 97.8 F 10/04/17 15:21 64 16 102/61 99 10/04/17 14:30 59 16 102/62 98 10/04/17 13:33 57 16 108/59 98 10/04/17 12:16 60 16 107/56 98 10/04/17 11:35 60 16 117/59 98 10/04/17 10:36 67 16 116/70 100 10/04/17 09:30 70 16 96/50 99 10/04/17 08:52 98.1 F 10/04/17 08:35 69 16 95/45 98 Intake and Output 10/04/17 10/05/17 10/05/17 23:59 07:59 15:59 Intake Total 1140 / 1140 100 / 100 Output Total 1325 / 1325 2575 / 2575 Balance -185 / -185 -2475 / -2475 Intake: IV Fluids 300 / 300 100 / 100 Cipro Premix 400 MG/200 ML 400 200 / 200 mg In 200 ml @ 200 mls/hr IVPB Q12HR [facility] Rx#:[id number] Flagyl Premix 500 MG/100 ML 500 100 / 100 100 / 100 mg In 100 ml @ 100 mls/hr IVPB Q8H [facility] Rx#:[id number] Oral 840 / 840 Output: Catheter 1325 / 1325 2575 / 2575 Other: Weight 156 kg Patient Weight 10/05/17 23:59 Weight 156 kg - General Appearance General appearance: Present: well-developed, well-nourished, appears started age , obese EENT: Present: mucous membranes moist Neck: Present: no JVD Respiratory: Present: clear Cardiology: Present: no edema, regular rate, regular rhythm Gastrointestinal: Present: hypoactive bowel sounds, no tenderness Integumentary: Present: warm and dry Neurologic: Present: alert and oriented x3 - Lab 10/05/17 03:46 10/05/17 03:46 Most recent lab results Calcium 8.7 mg/dL (8.6-10.3) 10/05/17 03:46 Magnesium 1.9 mg/dL (1.6-2.6) 10/05/17 03:46 Consult Discharge Plan - Plan Referrals: Delmar Mcbride MD [Primary Care Provider] -
[2017-10-05] MEDS ORDERED: 0.9 % Sodium Chloride 1,000 ML IVC SCH (08:30)
--- NOTE | 2017-10-05 11:02 | Internal Med Progress Note ---
Date of Encounter: 10/05/17 Time of Encounter: 11:00 - Assessment and plan (1) Shock Current Visit: Yes Status: Acute Assessment and plan: Likely 2/2 to hypovolemia from diarrhea. Resolved. Off pressors. Continue IV fluids. Monitor BP (2) Acute kidney injury Current Visit: Yes Status: Acute Assessment and plan: Resolving. Continue IV fluids (3) Leukocytosis Current Visit: Yes Status: Acute Assessment and plan: Resolved likely 2/2 to gastroenteritis. Continue cipro and flagyl Qualifiers: Leukocytosis type: unspecified Qualified Code(s): D72.829 - Elevated white blood cell count, unspecified (4) Obesity Current Visit: Yes Status: Acute Assessment and plan: diet and exercise Qualifiers: Obesity type: due to excess calories Obesity classification: adult class 3 (BMI >= 40) Serious obesity comorbidity presence: without serious comorbidity Body mass index: BMI 45.0-49.9 Qualified Code(s): E66.01 - Morbid (severe) obesity due to excess calories; Z68.42 - Body mass index (BMI) 45.0-49.9, adult (5) Abdominal pain Current Visit: Yes Status: Resolved Assessment and plan: Continue cipro and flagyl and apin control as needed Qualifiers: Abdominal location: periumbilical Qualified Code(s): R10.33 - Periumbilical pain (6) Ileus Current Visit: Yes Status: Acute Assessment and plan: Seen by surgery. No acute surgical intervention (7) DVT prophylaxis Current Visit: Yes Status: Acute Assessment and plan: On heparin sc (8) Diarrhea Current Visit: Yes Status: Acute Assessment and plan: cOntinue cipro and flagyl Qualifiers: Diarrhea type: unspecified type Qualified Code(s): R19.7 - Diarrhea, unspecified - Time Spent With Patient Total time spent is greater than 50% in coordination of care (as documented) at patient's floor/unit and/or counseling patient: - Subjective Interval history: No acute events overnight - Constitutional Vitals: Temp Pulse Resp BP Pulse Ox 97.9 F 84 19 118/70 97 10/05/17 07:52 10/05/17 10:00 10/05/17 10:00 10/05/17 10:00 10/05/17 10:00 - Head Head exam: Present: atraumatic, normocephalic - Eye Eye exam: Present: PERRL, conjuntiva pink, sclera anicteric Pupils: Present: PERRL - Neck Neck exam general surgery: Present: supple, trachea midline. Absent: lymphadenopathy - Respiratory Respiratory exam: Present: CTAB. Absent: accessory muscle use, rales, rhonchi, wheezes - Cardiovascular Cardiovascular exam: Present: RRR, +S1, +S2. Absent: diastolic murmur, gallop, rubs, systolic murmur - GI/Abdominal GI/Abdominal exam: Present: normal bowel sounds, soft, no peritoneal signs. Absent: distended, tenderness - Extremities Exam Extremities exam: Present: warm, radial pulses palpable and symmetrical. Absent : calf tenderness, cyanotic, pedal edema - Neurological Exam Neurological exam: Present: CN II-XII intact, oriented X3, no focal deficits. Absent: pronater drift, facial droop, speech deficit - Skin Skin exam: Present: dry, intact Internal Medicine: Result - Labs CBC & Chem 7: 10/05/17 03:46 10/05/17 03:46 Labs: Short CBC 10/05/17 Range/Units 03:46 WBC 9.5 (4.3-11.1) K/mcL Hgb 11.1 L (12.9-16.9) g/dL Hct 33.9 L (37.5-50.1) % Plt Count 183 (140-400) K/mcL Neutrophils # 6.0 (1.6-8.9) K/mcL BMP 10/05/17 03:46 Sodium 138 Potassium 3.9 Chloride 112 H Carbon Dioxide 18 L BUN 15 Creatinine 1.41 H Glucose 102 Calcium 8.7 - ABG Interpretation ABG results: PT/INR, D-dimer PT 13.7 Seconds (9.4-12.1) H 10/03/17 07:42 Consult Discharge Plan - Plan Referrals: Delmar Mcbride MD [Primary Care Provider] -
[2017-10-06 02:23] LABS: Basophils # 0.1 K/mcL (0.0-0.2); Basophils % 0.6 %; Eosinophils # 0.3 K/mcL (0.0-0.6); Eosinophils % 2.7 %; Hematocrit 35.3 % (37.5-50.1); Hemoglobin 11.8 g/dL (12.9-16.9); Immature Granulocytes % 0.6 % (0-4); Lymphocytes # 2.7 K/mcL (0.6-4.6); Lymphocytes % 23.1 %; Mean Corpuscular HGB Conc 33.4 g/dL (31.6-35.5); Mean Corpuscular Hemoglobin 30.3 pg (28.0-33.3); Mean Corpuscular Volume 90.7 fL (83.0-100.0); Mean Platelet Volume 10.8 fL (9.4-12.4); Monocytes # 1.2 K/mcL (0.0-1.3); Monocytes % 10.2 %; Neutrophils # 7.3 K/mcL (1.6-8.9); Platelet Count 231 K/mcL (140-400); Red Blood Count 3.89 M/mcL (4.19-5.50); Red Cell Distribution Width 12.6 % (11.5-14.5); Segmented Neutrophils % 62.8 %
[2017-10-06 02:43] LABS: Calcium 9.2 mg/dL (8.6-10.3); Potassium 3.4 mEq/L (3.5-5.1)
[2017-10-06] MEDS: MetroNIDAZOLE 500 MG/100 ML 500 MG/100 ML BAG IVPB SCH ×2 (04:25→10:45)
[2017-10-06] MEDS: *HR* Heparin 5,000 UNIT/ML VIAL SQ SCH (06:38)
--- NOTE | 2017-10-06 08:46 | Nephrology Progress Note ---
Date of Encounter: 10/06/17 Time of Encounter: 08:10 - Assessment and Plan (1) Acute kidney injury Current Visit: No Status: Resolved EDWAR in most likely in setting septic shock, ileus, ACEI, GI loss contributing, IV contrast could worsen or lengthen process superimposed on CKD, baseline creat 1.2-1.6. Renal fct stable. Creat 1.51. K 3.4. Will give K rider. Documented urine output 3775cc. Will stop IV fluids. Accurate I&O's. Avoid nephrotoxins. Will continue to monitor. Will follow in office in 2-3 weeks with labs. Subjective Principal diagnosis: Ileus, EDWAR Interval history: Resting quietly in bed, watching tv. Objective - Vital Signs Vital signs: Vital Signs Temp Pulse Resp BP Pulse Ox 10/06/17 07:19 97.9 F 66 17 121/77 98 10/06/17 04:18 98.7 F 62 12 110/70 96 10/05/17 23:15 98.8 F 70 16 100/65 95 10/05/17 19:56 98.1 F 64 14 102/66 97 10/05/17 15:00 97.6 F 66 17 108/69 96 10/05/17 11:32 97.9 F 87 17 143/80 98 10/05/17 10:00 84 19 118/70 97 Intake and Output 10/05/17 10/06/17 10/06/17 23:59 07:59 15:59 Intake Total 500 / 500 Balance 500 / 500 Intake: IV Fluids 300 / 300 Cipro Premix 400 MG/200 ML 400 200 / 200 mg In 200 ml @ 200 mls/hr IVPB Q12HR PRIYANKA Rx#:[id number] Flagyl Premix 500 MG/100 ML 500 100 / 100 mg In 100 ml @ 100 mls/hr IVPB Q8H PRIYANKA Rx#:[id number] Oral 200 / 200 Other: Stool Size Moderate Stool Consistency loose soft Stool Characteristics Normal for Patient Stool Color Brown # Voids 2 # Bowel Movements 1 - General Appearance General appearance: Present: well-developed, well-nourished, appears started age , obese EENT: Present: mucous membranes moist Neck: Present: no JVD Respiratory: Present: clear Cardiology: Present: edema, regular rate, regular rhythm Additional Comments: mild LE Gastrointestinal: Present: normoactive bowel sounds, tenderness Integumentary: Present: warm and dry Neurologic: Present: alert and oriented x3 - Lab 10/06/17 01:15 10/06/17 01:15 Most recent lab results Calcium 9.2 mg/dL (8.6-10.3) 10/06/17 01:15 Magnesium 1.9 mg/dL (1.6-2.6) 10/05/17 03:46 Consult Discharge Plan - Plan Referrals: Delmar Mcbride MD [Primary Care Provider] -
--- NOTE | 2017-10-06 10:58 | Discharge Summary ---
- NOTES TO OUTPATIENT PROVIDER Notes to Outpatient Provider: Follow up with PCP. All your blood pressure meds have been held Orders not resulted at time of discharge: Pending orders 10/07/17 04:00 Basic Metabolic Panel AM 0400 Complete Blood Count [HEME] AM 0400 Date of Encounter: 10/06/17 Time of Encounter: 11:00 - Discharge Diagnosis (1) Shock Priority: Primary Status: Acute Assessment and Plan: 47 year old male with past medical history of hypertension, anemia, atrial fibrillation, obesity presents to emergency room with complaint of right lower quadrant abdominal pain 3 days and diarrhea. He was noted t be bradycardic and hypotensive on admission. He was given 4L of normal saline and remained hypotensive. he was subsequently admittted to the ICU for further management. he was assessed on the ICU with shock likely from dehydration vs infection. He was started on broad spectrum antibiotics, fluids and pressors. CT scan done in ER showed ileuas vs SBO and surgery was consulted. HE was seen by surgery who determined there would be no acute surgical intervention. He made a gradual recovery and was able to be weaned off pressors. He was also able to tolerate a diet. A gi panel came back negative for any infectious causes fo diarrhea/ his shock was thought 2/2 to hypovolemic vs infectious vs due to antihypertensives. All his antihypertensives were held on discharge as aptient's BP and HR were WNL wihtout antihypertensive meds. He was discharged to complete a course of cipro and flagyl and will follow up with his PCP (2) Acute kidney injury Priority: Secondary Status: Acute (3) Leukocytosis Priority: Secondary Status: Acute Qualifiers: Leukocytosis type: unspecified Qualified Code(s): D72.829 - Elevated white blood cell count, unspecified (4) Obesity Priority: Secondary Status: Acute Qualifiers: Obesity type: due to excess calories Obesity classification: adult class 3 (BMI >= 40) Serious obesity comorbidity presence: without serious comorbidity Body mass index: BMI 45.0-49.9 Qualified Code(s): E66.01 - Morbid (severe) obesity due to excess calories; Z68.42 - Body mass index (BMI) 45.0-49.9, adult (5) Abdominal pain Priority: Secondary Status: Resolved Qualifiers: Abdominal location: periumbilical Qualified Code(s): R10.33 - Periumbilical pain (6) Ileus Priority: Secondary Status: Acute (7) DVT prophylaxis Priority: Secondary Status: Acute (8) Diarrhea Priority: Secondary Status: Acute Qualifiers: Diarrhea type: unspecified type Qualified Code(s): R19.7 - Diarrhea, unspecified Hospital course: Mr. Nelson is a 47 year old male - Time Spent with Patient Total time spent providing and/or coordinating discharge services: - Discharge Medications Prescriptions: Loperamide [Imodium] 2 mg PO Q4HR PRN #30 capsule PRN Reason: Diarrhea Ciprofloxacin [Cipro] 500 mg PO BID #10 tablet metroNIDAZOLE [Flagyl] 500 mg PO TID #15 tablet Home Medications: Diazepam [Valium] 5 mg PO BID PRN 05/02/15 [History] Meclizine [Antivert] 25 mg PO TID 05/02/15 [History] Cholecalciferol (Vitamin D3) [Vitamin D3] 50,000 unit PO MOFR 11/22/16 [History] Folic Acid 1 mg PO DAILY 11/22/16 [History] Atorvastatin [Lipitor] 10 mg PO HS 10/03/17 [History] Ciprofloxacin [Cipro] 500 mg PO BID #10 tablet 10/06/17 [Rx] Loperamide [Imodium] 2 mg PO Q4HR PRN #30 capsule 10/06/17 [Rx] metroNIDAZOLE [Flagyl] 500 mg PO TID #15 tablet 10/06/17 [Rx] Allergies/Adverse Reactions: 3 Allergy/AdvReac Type Severity Reaction Status Date / Time Iodinated Contrast- Oral and AdvReac Mild Nausea Verified 10/03/17 08:09 IV Dye Hydromorphone [From Dilaudid] AdvReac Migraine Verified 08/29/17 14:50 Date of admission: 10/03/17 12:31 Primary care physician: Delmar Mcbride MD - Constitutional Vitals: Temp Pulse Resp BP Pulse Ox 97.9 F 66 17 121/77 98 10/06/17 07:19 10/06/17 07:19 10/06/17 07:19 10/06/17 07:19 10/06/17 07:19 - Head Head exam: Present: atraumatic, normocephalic - Eye Eye exam: Present: PERRL, conjuntiva pink, sclera anicteric Pupils: Present: PERRL - Neck Neck exam general surgery: Present: supple, trachea midline. Absent: lymphadenopathy - Respiratory Respiratory exam: Present: CTAB. Absent: accessory muscle use, rales, rhonchi, wheezes - Cardiovascular Cardiovascular exam: Present: RRR, +S1, +S2. Absent: diastolic murmur, gallop, rubs, systolic murmur - GI/Abdominal GI/Abdominal exam: Present: normal bowel sounds, soft, no peritoneal signs. Absent: distended, tenderness - Extremities Exam Extremities exam: Present: warm, radial pulses palpable and symmetrical. Absent : calf tenderness, cyanotic, pedal edema - Neurological Exam Neurological exam: Present: CN II-XII intact, oriented X3, no focal deficits. Absent: pronater drift, facial droop, speech deficit - Skin Skin exam: Present: dry, intact - Patient Status Disposition: Home, Self-Care Condition: Good - Discharge Instructions Follow Up With: Delmar Mcbride MD [Primary Care Provider] - Forms: ED Satisfaction Letter, Work/School Release
[2017-10-06 11:25] VITALS: BP 114/74
== END 2017-10-06 15:07 | disposition home or self-care (01) | DRG 196 ==
LOC: EMEROO 07:18 → ICNU 12:31 → 3NENU 10-05 11:10
PROVIDERS: ADMIT Hospitalist; ATTEND Hospitalist

== ENCOUNTER 2019-08-27 20:17 | Inpatient (IN) ==
[2019-08-27] MEDS ORDERED: 0.9 % Sodium Chloride 1,000 ML IVC ONE (20:24)
[2019-08-27] MEDS ORDERED: GI Cocktail 40 ML EACH PO ONE (20:24)
[2019-08-27 20:42] LABS: Basophils # 0.1 K/mcL (0.0-0.2); Basophils % 0.5 %; Eosinophils % 0.1 %; Hematocrit 47.8 % (37.5-50.1); Hemoglobin 15.9 g/dL (12.9-16.9); Immature Granulocytes % 0.3 % (0-4); Lymphocytes # 1.7 K/mcL (0.6-4.6); Lymphocytes % 10.8 %; Mean Corpuscular HGB Conc 33.3 g/dL (31.6-35.5); Mean Corpuscular Hemoglobin 29.4 pg (28.0-33.3); Mean Corpuscular Volume 88.4 fL (83.0-100.0); Mean Platelet Volume 9.8 fL (9.4-12.4); Monocytes # 0.5 K/mcL (0.0-1.3); Monocytes % 3.4 %; Neutrophils # 13.6 K/mcL (1.6-8.9); Platelet Count 285 K/mcL (140-400); Red Blood Count 5.41 M/mcL (4.19-5.50); Red Cell Distribution Width 12.5 % (11.5-14.5); Segmented Neutrophils % 84.9 %
[2019-08-27 21:02] LABS: Alanine Aminotransferase 13 Units/L (7-52); Albumin 4.5 g/dL (3.5-5.7); Albumin/Globulin Ratio 1.1 (1.1-2.2); Alkaline Phosphatase 86 Units/L (34-104); Aspartate Amino Transferase 19 Units/L (13-39); BUN/Creatinine Ratio 12 (6-26); Bilirubin,Direct 0.2 mg/dL (0.0-0.2); Bilirubin,Indirect 0.6 mg/dL (0.0-1.0); Bilirubin,Total 0.8 mg/dL (0.3-1.0); Blood Urea Nitrogen 11 mg/dL (6-20); Calcium 9.5 mg/dL (8.6-10.3); Carbon Dioxide 24 mEq/L (23-29); Chloride 104 mEq/L (98-107); Glucose 147 mg/dL (70-105); Osmolality,Calculated 286 (280-300); Potassium 3.8 mEq/L (3.5-5.1); Sodium 137 mEq/L (136-145); Total Protein 8.5 g/dL (6.4-8.9); eGFR For African Americans > 60 (> 60); eGFR For Non-African Americans > 60 (> 60)
[2019-08-27 21:03] LABS: Lipase 18 Units/L (11-82)
[2019-08-27 21:04] LABS: Troponin I < 0.03 ng/mL (< 0.04)
[2019-08-27] MEDS ORDERED: *HR* FentaNYL (PF) 100 MCG/2 ML VIAL IVP ONE (21:33)
[2019-08-27] MEDS ORDERED: MetroNIDAZOLE 500 MG/100 ML 500 MG/100 ML BAG IVPB ONE (22:17)
[2019-08-27] MEDS ORDERED: Naloxone 0.4 MG/ML INJ IVP PRN (23:16)
[2019-08-28] MEDS ORDERED: Enoxaparin Weight Dosing SQ STA (00:53)
[2019-08-28] MEDS: 0.9 % Sodium Chloride 1,000 ML IVC SCH ×2 (01:34→10:49)
[2019-08-28] MEDS ORDERED: Ondansetron 4 MG/2 ML VIAL IVP PRN (01:44)
[2019-08-28 04:56] LABS: Basophils % 0.2 %; Hemoglobin 14.5 g/dL (12.9-16.9); Immature Granulocytes % 0.5 % (0-4); Lymphocytes # 1.5 K/mcL (0.6-4.6); Lymphocytes % 10.6 %; Mean Corpuscular Hemoglobin 29.2 pg (28.0-33.3); Mean Corpuscular Volume 88.5 fL (83.0-100.0); Mean Platelet Volume 10.4 fL (9.4-12.4); Monocytes # 0.9 K/mcL (0.0-1.3); Neutrophils # 11.8 K/mcL (1.6-8.9); Platelet Count 253 K/mcL (140-400); Red Blood Count 4.97 M/mcL (4.19-5.50); Red Cell Distribution Width 12.5 % (11.5-14.5); Segmented Neutrophils % 82.7 %; White Blood Count 14.3 K/mcL (4.3-11.1)
[2019-08-28 05:12] LABS: BUN/Creatinine Ratio 12 (6-26); Blood Urea Nitrogen 11 mg/dL (6-20); Calcium 8.7 mg/dL (8.6-10.3); Carbon Dioxide 25 mEq/L (23-29); Chloride 104 mEq/L (98-107); Glucose 140 mg/dL (70-105); Osmolality,Calculated 286 (280-300); Potassium 3.6 mEq/L (3.5-5.1); Sodium 137 mEq/L (136-145); eGFR For African Americans > 60 (> 60); eGFR For Non-African Americans > 60 (> 60)
[2019-08-28] MEDS: *HR* Heparin 5,000 UNIT/ML VIAL SQ SCH ×3 (06:12→20:59)
[2019-08-28] MEDS: MetroNIDAZOLE 500 MG/100 ML 500 MG/100 ML BAG IVPB SCH ×2 (09:24→16:37)
[2019-08-28] MEDS: *HR* Metoprolol 5 MG/5 ML VIAL IVP SCH ×2 (11:05→21:09)
[2019-08-28] MEDS: Ringers Solution, Lactated 1,000 ML IVC SCH (14:07)
[2019-08-29] MEDS: MetroNIDAZOLE 500 MG/100 ML 500 MG/100 ML BAG IVPB SCH ×3 (00:14→15:09)
[2019-08-29] MEDS: Ringers Solution, Lactated 1,000 ML IVC SCH ×3 (00:18→23:13)
[2019-08-29] MEDS: *HR* Heparin 5,000 UNIT/ML VIAL SQ SCH ×3 (05:57→21:26)
[2019-08-29] MEDS: *HR* Metoprolol 5 MG/5 ML VIAL IVP SCH (09:24)
[2019-08-29] MEDS ORDERED: diazePAM 5 MG TABLET PO PRN (11:29)
[2019-08-29] MEDS ORDERED: Folic Acid 1 MG TABLET PO SCH (11:30)
[2019-08-29] MEDS: Gabapentin 300 MG CAPSULE PO SCH ×2 (15:08→21:26)
[2019-08-30] MEDS: MetroNIDAZOLE 500 MG/100 ML 500 MG/100 ML BAG IVPB SCH ×2 (00:14→09:06)
[2019-08-30] MEDS: *HR* Heparin 5,000 UNIT/ML VIAL SQ SCH (06:04)
[2019-08-30 06:56] VITALS: BP 161/96
[2019-08-30 08:00] LABS: Hematocrit 39.8 % (37.5-50.1); Mean Corpuscular HGB Conc 31.7 g/dL (31.6-35.5); Mean Corpuscular Hemoglobin 28.8 pg (28.0-33.3); Mean Corpuscular Volume 91.1 fL (83.0-100.0); Mean Platelet Volume 10.2 fL (9.4-12.4); Platelet Count 210 K/mcL (140-400); Red Blood Count 4.37 M/mcL (4.19-5.50); Red Cell Distribution Width 12.5 % (11.5-14.5); White Blood Count 7.6 K/mcL (4.3-11.1)
[2019-08-30 08:13] LABS: Hemoglobin 12.6 g/dL (12.9-16.9)
[2019-08-30 08:16] LABS: BUN/Creatinine Ratio 9 (6-26); Blood Urea Nitrogen 9 mg/dL (6-20); Calcium 8.5 mg/dL (8.6-10.3); Carbon Dioxide 28 mEq/L (23-29); Chloride 104 mEq/L (98-107); Glucose 110 mg/dL (70-105); Osmolality,Calculated 285 (280-300); Potassium 3.3 mEq/L (3.5-5.1); Sodium 138 mEq/L (136-145); eGFR For African Americans > 60 (> 60); eGFR For Non-African Americans > 60 (> 60)
[2019-08-30] MEDS: Gabapentin 300 MG CAPSULE PO SCH (09:06)
== END 2019-08-30 12:41 | disposition home or self-care (01) | DRG 249 ==
LOC: 3ANU 20:17 → EMEROOARM 20:17 → SUATTDRO 22:21 → 3ANU 22:48
PROVIDERS: ADMIT Internal Medicine; ATTEND Internal Medicine

== ENCOUNTER 2019-09-16 15:39 | Observation (INO) ==
[2019-09-16] MEDS ORDERED: 0.9 % Sodium Chloride 1,000 ML IVC ONE (16:03)
[2019-09-16 16:56] LABS: Basophils # 0.1 K/mcL (0.0-0.2); Eosinophils # 0.3 K/mcL (0.0-0.6); Eosinophils % 3.3 %; Hematocrit 41.2 % (37.5-50.1); Hemoglobin 13.3 g/dL (12.9-16.9); Immature Granulocytes % 0.2 % (0-4); Lymphocytes # 2.5 K/mcL (0.6-4.6); Lymphocytes % 29.8 %; Mean Corpuscular HGB Conc 32.3 g/dL (31.6-35.5); Mean Corpuscular Hemoglobin 28.9 pg (28.0-33.3); Mean Corpuscular Volume 89.6 fL (83.0-100.0); Monocytes # 0.9 K/mcL (0.0-1.3); Monocytes % 11.2 %; Neutrophils # 4.6 K/mcL (1.6-8.9); Platelet Count 244 K/mcL (140-400); Red Cell Distribution Width 12.6 % (11.5-14.5); Segmented Neutrophils % 54.5 %; White Blood Count 8.4 K/mcL (4.3-11.1)
[2019-09-16 17:16] LABS: BUN/Creatinine Ratio 8 (6-26); Blood Urea Nitrogen 9 mg/dL (6-20); Calcium 8.8 mg/dL (8.6-10.3); Carbon Dioxide 26 mEq/L (23-29); Chloride 104 mEq/L (98-107); Glucose 80 mg/dL (70-105); Osmolality,Calculated 280 (280-300); Potassium 3.7 mEq/L (3.5-5.1); Sodium 136 mEq/L (136-145); eGFR For African Americans > 60 (> 60); eGFR For Non-African Americans > 60 (> 60)
[2019-09-16] MEDS ORDERED: Naloxone 0.4 MG/ML INJ IVP PRN (18:06)
[2019-09-16] MEDS ORDERED: Ondansetron 4 MG/2 ML VIAL IVP PRN (18:06)
[2019-09-16 18:23] LABS: Troponin I < 0.03 ng/mL (< 0.04)
[2019-09-16] MEDS ORDERED: *HR* Rivaroxaban 10 MG TABLET PO SCH (18:29)
[2019-09-16 18:37] LABS: Thyroid Stimulating Hormone 2.087 mcIU/mL (0.340-5.600)
[2019-09-16] MEDS: Ringers Solution, Lactated 1,000 ML IVC SCH (21:50)
[2019-09-17 03:43] LABS: Basophils # 0.1 K/mcL (0.0-0.2); Basophils % 0.8 %; Eosinophils # 0.4 K/mcL (0.0-0.6); Eosinophils % 4.7 %; Hematocrit 40.7 % (37.5-50.1); Hemoglobin 13.1 g/dL (12.9-16.9); Immature Granulocytes % 0.4 % (0-4); Lymphocytes # 2.7 K/mcL (0.6-4.6); Lymphocytes % 32.8 %; Mean Corpuscular HGB Conc 32.2 g/dL (31.6-35.5); Mean Corpuscular Hemoglobin 28.9 pg (28.0-33.3); Mean Corpuscular Volume 89.8 fL (83.0-100.0); Mean Platelet Volume 10.2 fL (9.4-12.4); Monocytes # 0.8 K/mcL (0.0-1.3); Monocytes % 9.8 %; Neutrophils # 4.3 K/mcL (1.6-8.9); Platelet Count 243 K/mcL (140-400); Red Blood Count 4.53 M/mcL (4.19-5.50); Red Cell Distribution Width 12.7 % (11.5-14.5); Segmented Neutrophils % 51.5 %; White Blood Count 8.3 K/mcL (4.3-11.1)
[2019-09-17 04:03] LABS: BUN/Creatinine Ratio 9 (6-26); Blood Urea Nitrogen 10 mg/dL (6-20); Calcium 8.7 mg/dL (8.6-10.3); Carbon Dioxide 26 mEq/L (23-29); Chloride 107 mEq/L (98-107); Glucose 101 mg/dL (70-105); Magnesium 2.2 mg/dL (1.6-2.6); Osmolality,Calculated 289 (280-300); Potassium 3.8 mEq/L (3.5-5.1); Sodium 140 mEq/L (136-145); eGFR For African Americans > 60 (> 60); eGFR For Non-African Americans > 60 (> 60)
[2019-09-17] MEDS: Ringers Solution, Lactated 1,000 ML IVC SCH (09:13)
[2019-09-17 10:20] VITALS: BP 125/77
== END 2019-09-17 13:05 | disposition home or self-care (01) ==
LOC: 2ANU 15:39 → EMEROOARM 15:39 → SUATTDRO 18:52 → 2ANU 20:22
PROVIDERS: ADMIT Family Medicine; ATTEND Internal Medicine

== ENCOUNTER 2019-11-29 07:40 | Inpatient (IN) ==
[2019-11-29] MEDS ORDERED: 0.9 % Sodium Chloride 1,000 ML IVC ONE (07:46)
[2019-11-29] MEDS ORDERED: Morphine Sulfate 2 MG/ML SYRINGE IVP ONE (07:46)
[2019-11-29] MEDS ORDERED: Ondansetron 4 MG/2 ML VIAL IVP ONE ×2 (07:46→09:53)
[2019-11-29 08:16] LABS: Bilirubin,Urine Negative (Negative); Blood,Urine Negative (Negative); Clarity,Urine Clear (Clear); Color,Urine Light-Yellow (Yellow); Glucose,Urine (UA) Normal (Normal); Hyaline Casts,Urine Few per lpf (None Seen); Ketones,Urine Negative (Negative); Leukocyte Esterase,Urine Negative (Negative); Mucus,Urine Few per lpf (None-Few); Nitrite,Urine Negative (Negative); PH,Urine 6.5 pH Units (5.0-8.0); Protein,Urine >=300 mg/dL (Neg-Trace); RBC,Urine 0-3 per hpf (0-3); Specific Gravity,Urine 1.025 (1.010-1.025); Squamous Epithelial Cell,Urine Few per hpf (None-Few); Urobilinogen,Urine Normal (Normal); WBC,Urine 0-3 per hpf (0-3)
[2019-11-29 08:18] LABS: Basophils # 0.1 K/mcL (0.0-0.2); Basophils % 0.5 %; Eosinophils # 0.1 K/mcL (0.0-0.6); Eosinophils % 0.4 %; Hematocrit 50.2 % (37.5-50.1); Hemoglobin 16.8 g/dL (12.9-16.9); Immature Granulocytes % 0.4 % (0-4); Lymphocytes # 2.7 K/mcL (0.6-4.6); Lymphocytes % 14.4 %; Mean Corpuscular HGB Conc 33.5 g/dL (31.6-35.5); Mean Corpuscular Hemoglobin 29.4 pg (28.0-33.3); Mean Corpuscular Volume 87.8 fL (83.0-100.0); Mean Platelet Volume 10.2 fL (9.4-12.4); Monocytes % 5.3 %; Neutrophils # 14.6 K/mcL (1.6-8.9); Platelet Count 320 K/mcL (140-400); Red Blood Count 5.72 M/mcL (4.19-5.50); Red Cell Distribution Width 12.3 % (11.5-14.5)
[2019-11-29 08:21] LABS: White Blood Count 18.5 K/mcL (4.3-11.1)
[2019-11-29 08:35] LABS: Alanine Aminotransferase 23 Units/L (7-52); Albumin 5.2 g/dL (3.5-5.7); Albumin/Globulin Ratio 1.2 (1.1-2.2); Alkaline Phosphatase 86 Units/L (34-104); Amylase 55 Units/L (29-103); Aspartate Amino Transferase 21 Units/L (13-39); BUN/Creatinine Ratio 13 (6-26); Bilirubin,Direct 0.1 mg/dL (0.0-0.2); Bilirubin,Indirect 0.6 mg/dL (0.0-1.0); Bilirubin,Total 0.7 mg/dL (0.3-1.0); Blood Urea Nitrogen 17 mg/dL (6-20); Calcium 10.6 mg/dL (8.6-10.3); Carbon Dioxide 24 mEq/L (23-29); Chloride 102 mEq/L (98-107); Globulin 4.5 g/dL (2.4-3.5); Glucose 156 mg/dL (70-105); Lipase 54 Units/L (11-82); Osmolality,Calculated 289 (280-300); Sodium 137 mEq/L (136-145); Total Protein 9.7 g/dL (6.4-8.9); Troponin I < 0.03 ng/mL (< 0.04); eGFR For African Americans > 60 (> 60); eGFR For Non-African Americans 56 (> 60)
[2019-11-29] MEDS ORDERED: Piperacillin/Tazobactam 3.375 GM in 0.9 % Sodium Chloride Mini Bag 100 ML IVPB ONE (10:12)
[2019-11-29] MEDS ORDERED: *HR* Promethazine 25 MG/ML VIAL IVP PRN (10:21)
[2019-11-29] MEDS ORDERED: Naloxone 0.4 MG/ML INJ IVP PRN (10:21)
[2019-11-29 10:43] LABS: INR 1.3; Prothrombin Time 14.7 Seconds (9.4-12.1)
[2019-11-29] MEDS ORDERED: *HR* Heparin 5,000 UNIT/ML VIAL IVP PRN ×2 (11:07)
[2019-11-29] MEDS ORDERED: *HR* Heparin 5,000 UNIT/ML VIAL IVP ONE (11:07)
[2019-11-29] MEDS ORDERED: *HR* OxyCODONE Immed Rel 5 MG TABLET PO PRN (11:07)
[2019-11-29] MEDS ORDERED: diazePAM 5 MG TABLET PO PRN (11:09)
[2019-11-29] MEDS ORDERED: Folic Acid 1 MG TABLET PO SCH (11:15)
[2019-11-29] MEDS: Ringers Solution, Lactated 1,000 ML IVC SCH ×2 (12:12→20:14)
[2019-11-29 12:13] LABS: Hematocrit 47.2 % (37.5-50.1); Hemoglobin 15.4 g/dL (12.9-16.9); Mean Corpuscular HGB Conc 32.6 g/dL (31.6-35.5); Mean Corpuscular Hemoglobin 28.8 pg (28.0-33.3); Mean Corpuscular Volume 88.4 fL (83.0-100.0); Mean Platelet Volume 11.2 fL (9.4-12.4); Platelet Count 200 K/mcL (140-400); Red Blood Count 5.34 M/mcL (4.19-5.50); Red Cell Distribution Width 12.4 % (11.5-14.5); White Blood Count 16.2 K/mcL (4.3-11.1)
[2019-11-29 12:17] LABS: Heparin anti-factor XA UFH 0.33 IU/mL (0.30-0.70)
[2019-11-29 12:18] LABS: INR 1.2; Prothrombin Time 13.5 Seconds (9.4-12.1)
[2019-11-29] MEDS: Heparin 25,000 UNIT/250 ML D5W 25,000 UNIT/250 ML IV.SOLN IVC SCH (14:32)
[2019-11-29] MEDS: Gabapentin 300 MG CAPSULE PO SCH ×2 (15:10→20:15)
[2019-11-30] MEDS: Heparin 25,000 UNIT/250 ML D5W 25,000 UNIT/250 ML IV.SOLN IVC SCH ×2 (01:34→15:34)
[2019-11-30] MEDS: Ringers Solution, Lactated 1,000 ML IVC SCH ×2 (04:13→13:04)
[2019-11-30 05:44] LABS: Hematocrit 41.4 % (37.5-50.1); Mean Corpuscular HGB Conc 32.4 g/dL (31.6-35.5); Mean Corpuscular Hemoglobin 29.8 pg (28.0-33.3); Mean Platelet Volume 10.1 fL (9.4-12.4); Platelet Count 229 K/mcL (140-400); Red Cell Distribution Width 12.6 % (11.5-14.5); White Blood Count 12.4 K/mcL (4.3-11.1)
[2019-11-30 05:45] LABS: Hemoglobin 13.4 g/dL (12.9-16.9)
[2019-11-30 05:53] LABS: INR 1.2; Prothrombin Time 13.2 Seconds (9.4-12.1)
[2019-11-30 06:03] LABS: BUN/Creatinine Ratio 14 (6-26); Blood Urea Nitrogen 16 mg/dL (6-20); Calcium 8.5 mg/dL (8.6-10.3); Carbon Dioxide 25 mEq/L (23-29); Chloride 106 mEq/L (98-107); Glucose 121 mg/dL (70-105); Osmolality,Calculated 290 (280-300); Potassium 3.8 mEq/L (3.5-5.1); Sodium 139 mEq/L (136-145); eGFR For African Americans > 60 (> 60); eGFR For Non-African Americans > 60 (> 60)
[2019-11-30 07:33] LABS: Campylobacter by PCR Not detected (Not detect)
[2019-11-30 07:36] LABS: Adenovirus F 40/41 PCR Not detected (Not detect); Astrovirus PCR Not detected (Not detect); C.difficile Toxin A/B Gene PCR DETECTED (Not detect); Cryptosporidium by PCR Not detected (Not detect); Cyclospora cayetanensis PCR Not detected (Not detect); E. coli O157 by PCR Not detected (Not detect); Entamoeba histolytica PCR Not detected (Not detect); Enteroaggregative E.coli(EAEC) Not detected (Not detect); Enteropathogenic E.coli(EPEC) DETECTED (Not detect); Enterotoxigenic E.coli (ETEC) Not detected (Not detect); Giardia lamblia PCR Not detected (Not detect); Norovirus GI/GII PCR Not detected (Not detect); Plesiomonas shigelloides PCR Not detected (Not detect); Rotavirus A PCR Not detected (Not detect); Salmonella PCR Not detected (Not detect); Sapovirus PCR Not detected (Not detect); Shig/EnteroinvasiveE coli EIEC Not detected (Not detect); Shigalike tox-prod E coli STEC Not detected (Not detect); Vibrio PCR Not detected (Not detect); Vibrio cholerae PCR Not detected (Not detect); Yersinia enterocolitica PCR Not detected (Not detect)
[2019-11-30] MEDS: Gabapentin 300 MG CAPSULE PO SCH ×2 (07:58→16:58)
[2019-11-30] MEDS: Vancomycin Oral Soln 125 MG/2.5 ML UDC PO SCH ×3 (08:47→16:58)
[2019-11-30] MEDS ORDERED: E-Z-PAQUE (BARIUM SULF) SUSP 1 BOTTLE PO ONE (11:29)
[2019-11-30] MEDS ORDERED: CefOXitin 1,000 MG VIAL ONE (16:13)
[2019-11-30] MEDS ORDERED: Ondansetron 4 MG/2 ML VIAL ONE (16:23)
[2019-11-30] MEDS ORDERED: *HR* Propofol 200 MG/20 ML VIAL IVP ONE ×2 (16:23→16:53)
[2019-11-30] MEDS ORDERED: *HR* Rocuronium Bromide 50 MG/5 ML VIAL ONE ×2 (16:23→18:51)
[2019-11-30] MEDS ORDERED: *HR* Succinylcholine 200 MG/10 ML VIAL IVP ONE (16:23)
[2019-11-30] MEDS ORDERED: *HR* Midazolam HCl 2 MG/2 ML VIAL ONE ×2 (16:23→16:53)
[2019-11-30] MEDS ORDERED: Lidocaine -MPF 2% 2 ML VIAL ONE (16:23)
[2019-11-30] MEDS ORDERED: Dexamethasone 4 MG/ML VIAL ONE (16:23)
[2019-11-30] MEDS ORDERED: *HR* FentaNYL (PF) 100 MCG/2 ML VIAL ONE ×4 (16:23→18:38)
[2019-11-30] MEDS ORDERED: ceFAZolin 3,000 MG in Water for inj. (sterile) 30 ML IVP ONE (17:14)
[2019-11-30] MEDS ORDERED: Ondansetron 4 MG/2 ML VIAL IVP ONE ×2 (17:16→19:59)
[2019-11-30] MEDS ORDERED: *HR* FentaNYL (PF) 100 MCG/2 ML VIAL IVP PRN (17:16)
[2019-11-30] MEDS ORDERED: *HR* Metoprolol 5 MG/5 ML VIAL IVP ONE (18:47)
[2019-11-30] MEDS ORDERED: *HR* Magnesium Sulfate 1 GM/2 ML VIAL ONE (18:47)
[2019-11-30] MEDS ORDERED: *HR* PHENYLEPHRINE 1,000 MCG/10 ML SYRINGE IVP ONE (18:59)
[2019-11-30] MEDS ORDERED: Morphine Sulfate 2 MG/ML SYRINGE IVP PRN (19:43)
[2019-11-30] MEDS ORDERED: *HR* Promethazine 25 MG/ML VIAL IVP PRN (20:02)
[2019-11-30] MEDS: Morphine Sulfate 2 MG/ML SYRINGE IVP PRN ×2 (20:09→20:18)
[2019-11-30] MEDS ORDERED: *HR* OxyCODONE/APAP 5/325 TABLET PO PRN (20:57)
[2019-11-30] MEDS ORDERED: Ondansetron 4 MG/2 ML VIAL IVP PRN (20:57)
[2019-11-30] MEDS ORDERED: *HR* Metoprolol 5 MG/5 ML VIAL IVP PRN (20:57)
[2019-11-30] MEDS: Piperacillin/Tazobactam 3.375 GM in 0.9 % Sodium Chloride Mini Bag 100 ML IVPB SCH (23:49)
[2019-11-30] MEDS: 0.9 % Sodium Chloride 1,000 ML IVC SCH (23:49)
[2019-12-01 05:23] LABS: Basophils % 0.2 %; Hematocrit 39.6 % (37.5-50.1); Hemoglobin 12.8 g/dL (12.9-16.9); Immature Granulocytes % 0.4 % (0-4); Lymphocytes # 1.3 K/mcL (0.6-4.6); Lymphocytes % 6.1 %; Mean Corpuscular HGB Conc 32.3 g/dL (31.6-35.5); Mean Corpuscular Hemoglobin 29.5 pg (28.0-33.3); Mean Corpuscular Volume 91.2 fL (83.0-100.0); Mean Platelet Volume 10.3 fL (9.4-12.4); Monocytes # 1.5 K/mcL (0.0-1.3); Monocytes % 7.2 %; Neutrophils # 18.2 K/mcL (1.6-8.9); Platelet Count 241 K/mcL (140-400); Red Blood Count 4.34 M/mcL (4.19-5.50); Red Cell Distribution Width 12.4 % (11.5-14.5); Segmented Neutrophils % 86.1 %; White Blood Count 21.1 K/mcL (4.3-11.1)
[2019-12-01 05:45] LABS: BUN/Creatinine Ratio 12 (6-26); Blood Urea Nitrogen 15 mg/dL (6-20); Calcium 8.3 mg/dL (8.6-10.3); Carbon Dioxide 23 mEq/L (23-29); Chloride 107 mEq/L (98-107); Glucose 150 mg/dL (70-105); Osmolality,Calculated 288 (280-300); Potassium 4.2 mEq/L (3.5-5.1); Sodium 137 mEq/L (136-145); eGFR For African Americans > 60 (> 60); eGFR For Non-African Americans > 60 (> 60)
[2019-12-01] MEDS: Ringers Solution, Lactated 1,000 ML IVC SCH (07:40)
[2019-12-01] MEDS: Piperacillin/Tazobactam 3.375 GM in 0.9 % Sodium Chloride Mini Bag 100 ML IVPB SCH (08:34)
[2019-12-01] MEDS: Pantoprazole 40 MG VIAL IVP SCH (08:34)
[2019-12-01] MEDS: 0.9 % Sodium Chloride 1,000 ML IVC SCH ×2 (08:48→21:10)
[2019-12-01] MEDS ORDERED: lisinopriL 5 MG TABLET PO SCH (09:00)
[2019-12-01] MEDS ORDERED: Chloraseptic Spray 177 ML BOTTLE MM PRN (11:21)
[2019-12-01] MEDS ORDERED: Saliva Stimulant 100ml BOTTLE PO PRN (11:21)
[2019-12-01] MEDS ORDERED: Orphenadrine 60 MG/2 ML VIAL IVP PRN (11:22)
[2019-12-01 12:28] LABS: Hematocrit 37.1 % (37.5-50.1); Hemoglobin 12.2 g/dL (12.9-16.9); Mean Corpuscular HGB Conc 32.9 g/dL (31.6-35.5); Mean Corpuscular Hemoglobin 29.8 pg (28.0-33.3); Mean Corpuscular Volume 90.5 fL (83.0-100.0); Mean Platelet Volume 10.1 fL (9.4-12.4); Platelet Count 239 K/mcL (140-400); Red Cell Distribution Width 12.5 % (11.5-14.5); White Blood Count 18.4 K/mcL (4.3-11.1)
[2019-12-01 12:36] LABS: Heparin anti-factor XA UFH < 0.04 IU/mL (0.30-0.70); INR 1.4; Prothrombin Time 16.3 Seconds (9.4-12.1)
[2019-12-01] MEDS ORDERED: diazePAM 5 MG TABLET PO PRN (12:44)
[2019-12-01] MEDS: Heparin 25,000 UNIT/250 ML D5W 25,000 UNIT/250 ML IV.SOLN IVC SCH (13:21)
[2019-12-01] MEDS: Acetaminophen IV 1,000 MG/100 ML BAG IVPB SCH ×2 (13:21→17:17)
[2019-12-01] MEDS: MetroNIDAZOLE 500 MG/100 ML 500 MG/100 ML BAG IVPB SCH (15:23)
[2019-12-02] MEDS: Acetaminophen IV 1,000 MG/100 ML BAG IVPB SCH ×4 (01:41→20:08)
[2019-12-02] MEDS: MetroNIDAZOLE 500 MG/100 ML 500 MG/100 ML BAG IVPB SCH ×3 (01:42→16:51)
[2019-12-02 03:41] LABS: Basophils % 0.2 %; Eosinophils % 0.1 %; Immature Granulocytes % 0.5 % (0-4); Lymphocytes # 1.7 K/mcL (0.6-4.6); Lymphocytes % 9.5 %; Mean Corpuscular HGB Conc 32.8 g/dL (31.6-35.5); Mean Corpuscular Hemoglobin 30.2 pg (28.0-33.3); Mean Platelet Volume 10.3 fL (9.4-12.4); Monocytes # 1.6 K/mcL (0.0-1.3); Monocytes % 9.2 %; Neutrophils # 14.1 K/mcL (1.6-8.9); Platelet Count 179 K/mcL (140-400); Red Blood Count 3.48 M/mcL (4.19-5.50); Red Cell Distribution Width 12.5 % (11.5-14.5); Segmented Neutrophils % 80.5 %; White Blood Count 17.5 K/mcL (4.3-11.1)
[2019-12-02 03:47] LABS: Hemoglobin 10.5 g/dL (12.9-16.9)
[2019-12-02 03:59] LABS: BUN/Creatinine Ratio 9 (6-26); Blood Urea Nitrogen 10 mg/dL (6-20); Calcium 7.8 mg/dL (8.6-10.3); Carbon Dioxide 23 mEq/L (23-29); Chloride 105 mEq/L (98-107); Glucose 133 mg/dL (70-105); Osmolality,Calculated 283 (280-300); Potassium 3.8 mEq/L (3.5-5.1); Sodium 136 mEq/L (136-145); eGFR For African Americans > 60 (> 60); eGFR For Non-African Americans > 60 (> 60)
[2019-12-02] MEDS: Heparin 25,000 UNIT/250 ML D5W 25,000 UNIT/250 ML IV.SOLN IVC SCH ×2 (04:56→18:24)
[2019-12-02] MEDS: 0.9 % Sodium Chloride 1,000 ML IVC SCH ×3 (09:47→20:21)
[2019-12-02] MEDS: Pantoprazole 40 MG VIAL IVP SCH (09:48)
[2019-12-03 02:50] LABS: Basophils # 0.1 K/mcL (0.0-0.2); Basophils % 0.4 %; Eosinophils # 0.4 K/mcL (0.0-0.6); Eosinophils % 2.4 %; Hematocrit 31.1 % (37.5-50.1); Hemoglobin 10.2 g/dL (12.9-16.9); Immature Granulocytes % 0.4 % (0-4); Lymphocytes # 1.6 K/mcL (0.6-4.6); Lymphocytes % 9.6 %; Mean Corpuscular HGB Conc 32.8 g/dL (31.6-35.5); Mean Corpuscular Hemoglobin 30.1 pg (28.0-33.3); Mean Corpuscular Volume 91.7 fL (83.0-100.0); Mean Platelet Volume 10.2 fL (9.4-12.4); Monocytes # 1.3 K/mcL (0.0-1.3); Monocytes % 7.9 %; Neutrophils # 13.2 K/mcL (1.6-8.9); Platelet Count 174 K/mcL (140-400); Red Blood Count 3.39 M/mcL (4.19-5.50); Red Cell Distribution Width 12.2 % (11.5-14.5); Segmented Neutrophils % 79.3 %; White Blood Count 16.6 K/mcL (4.3-11.1)
[2019-12-03 03:08] LABS: BUN/Creatinine Ratio 8 (6-26); Blood Urea Nitrogen 7 mg/dL (6-20); Calcium 8.2 mg/dL (8.6-10.3); Carbon Dioxide 23 mEq/L (23-29); Chloride 104 mEq/L (98-107); Glucose 119 mg/dL (70-105); Osmolality,Calculated 279 (280-300); Potassium 3.6 mEq/L (3.5-5.1); Sodium 135 mEq/L (136-145); eGFR For African Americans > 60 (> 60); eGFR For Non-African Americans > 60 (> 60)
[2019-12-03] MEDS: Acetaminophen IV 1,000 MG/100 ML BAG IVPB SCH ×4 (03:26→18:43)
[2019-12-03] MEDS: MetroNIDAZOLE 500 MG/100 ML 500 MG/100 ML BAG IVPB SCH ×2 (03:27→10:54)
[2019-12-03] MEDS: Heparin 25,000 UNIT/250 ML D5W 25,000 UNIT/250 ML IV.SOLN IVC SCH ×2 (03:30→11:54)
[2019-12-03] MEDS: 0.9 % Sodium Chloride 1,000 ML IVC SCH (06:50)
[2019-12-03] MEDS: Pantoprazole 40 MG VIAL IVP SCH (08:18)
[2019-12-03] MEDS: metroNIDAZOLE 500 MG TABLET PO SCH ×2 (15:45→20:43)
[2019-12-04 00:46] LABS: BUN/Creatinine Ratio 8 (6-26); Blood Urea Nitrogen 7 mg/dL (6-20); Calcium 8.5 mg/dL (8.6-10.3); Carbon Dioxide 25 mEq/L (23-29); Chloride 104 mEq/L (98-107); Glucose 117 mg/dL (70-105); Osmolality,Calculated 283 (280-300); Potassium 3.1 mEq/L (3.5-5.1); Sodium 137 mEq/L (136-145); eGFR For African Americans > 60 (> 60); eGFR For Non-African Americans > 60 (> 60)
[2019-12-04 00:51] LABS: Basophils # 0.1 K/mcL (0.0-0.2); Basophils % 0.4 %; Eosinophils # 0.6 K/mcL (0.0-0.6); Eosinophils % 4.5 %; Hematocrit 28.1 % (37.5-50.1); Hemoglobin 9.2 g/dL (12.9-16.9); Immature Granulocytes % 0.4 % (0-4); Lymphocytes # 1.8 K/mcL (0.6-4.6); Lymphocytes % 14.7 %; Mean Corpuscular HGB Conc 32.7 g/dL (31.6-35.5); Mean Corpuscular Hemoglobin 29.6 pg (28.0-33.3); Mean Corpuscular Volume 90.4 fL (83.0-100.0); Mean Platelet Volume 10.1 fL (9.4-12.4); Neutrophils # 8.9 K/mcL (1.6-8.9); Platelet Count 217 K/mcL (140-400); Red Blood Count 3.11 M/mcL (4.19-5.50); Red Cell Distribution Width 12.2 % (11.5-14.5); White Blood Count 12.4 K/mcL (4.3-11.1)
[2019-12-04] MEDS: Heparin 25,000 UNIT/250 ML D5W 25,000 UNIT/250 ML IV.SOLN IVC SCH ×3 (01:05→20:52)
[2019-12-04] MEDS: Acetaminophen IV 1,000 MG/100 ML BAG IVPB SCH ×2 (01:09→05:56)
[2019-12-04] MEDS ORDERED: Acetaminophen 325 MG TABLET PO PRN (08:27)
[2019-12-04] MEDS: Pantoprazole 40 MG VIAL IVP SCH (09:01)
[2019-12-04] MEDS: metroNIDAZOLE 500 MG TABLET PO SCH ×3 (09:01→20:51)
[2019-12-04] MEDS: Gabapentin 300 MG CAPSULE PO SCH ×2 (15:34→20:51)
[2019-12-04] MEDS: MetroNIDAZOLE 500 MG/100 ML 500 MG/100 ML BAG IVPB SCH (19:55)
[2019-12-05 08:21] LABS: Hematocrit 31.4 % (37.5-50.1); Hemoglobin 10.3 g/dL (12.9-16.9); Mean Corpuscular HGB Conc 32.8 g/dL (31.6-35.5); Mean Corpuscular Volume 91.5 fL (83.0-100.0); Mean Platelet Volume 10.7 fL (9.4-12.4); Platelet Count 221 K/mcL (140-400); Red Blood Count 3.43 M/mcL (4.19-5.50); Red Cell Distribution Width 12.2 % (11.5-14.5); White Blood Count 11.6 K/mcL (4.3-11.1)
[2019-12-05 08:43] LABS: BUN/Creatinine Ratio 13 (6-26); Blood Urea Nitrogen 11 mg/dL (6-20); Calcium 8.2 mg/dL (8.6-10.3); Carbon Dioxide 23 mEq/L (23-29); Chloride 103 mEq/L (98-107); Glucose 119 mg/dL (70-105); Osmolality,Calculated 283 (280-300); Potassium 3.4 mEq/L (3.5-5.1); Sodium 136 mEq/L (136-145); eGFR For African Americans > 60 (> 60); eGFR For Non-African Americans > 60 (> 60)
[2019-12-05] MEDS: metroNIDAZOLE 500 MG TABLET PO SCH (09:15)
[2019-12-05] MEDS: Gabapentin 300 MG CAPSULE PO SCH (09:15)
[2019-12-05] MEDS: Heparin 25,000 UNIT/250 ML D5W 25,000 UNIT/250 ML IV.SOLN IVC SCH (09:17)
[2019-12-05 10:43] VITALS: BP 126/82
== END 2019-12-05 15:53 | disposition home or self-care (01) | DRG 680 ==
LOC: EMEROOARM 07:40 → 3ANU 07:40 → SUATTDRO 10:39 → 3ANU 11:18 → SUATTDRO 11-30 16:06
PROVIDERS: ADMIT Internal Medicine; ATTEND Internal Medicine

== ENCOUNTER 2020-11-18 09:52 | Inpatient (IN) ==
[2020-11-18] MEDS ORDERED: CeFAZolin Syr 3,000MG/30 ML 3,000 MG/30 ML SYRINGE IVPB ONE (10:33)
[2020-11-18] MEDS ORDERED: Ringers Solution, Lactated 1,000 ML IVC SCH (10:45)
[2020-11-18] MEDS ORDERED: *HR* OxyCODONE Immed Rel 5 MG TABLET PO PRN (11:33)
[2020-11-18] MEDS ORDERED: Ondansetron 4 MG/2 ML VIAL IVP PRN ×2 (11:33→17:35)
[2020-11-18] MEDS ORDERED: *HR* FentaNYL (PF) 100 MCG/2 ML VIAL ONE ×2 (11:58→16:05)
[2020-11-18] MEDS ORDERED: Ondansetron 4 MG/2 ML VIAL ONE (11:58)
[2020-11-18] MEDS ORDERED: Lidocaine -MPF 2% 2 ML VIAL ONE (11:58)
[2020-11-18] MEDS ORDERED: *HR* Succinylcholine 200 MG/10 ML VIAL IVP ONE (11:58)
[2020-11-18] MEDS ORDERED: *HR* Midazolam HCl 2 MG/2 ML VIAL ONE (11:58)
[2020-11-18] MEDS ORDERED: *HR* Rocuronium Bromide 50 MG/5 ML VIAL ONE (11:58)
[2020-11-18] MEDS ORDERED: *HR* Propofol 200 MG/20 ML VIAL IVP ONE (11:59)
[2020-11-18] MEDS ORDERED: Sugammadex Sodium 200 MG/2 ML VIAL IV ONE (12:00)
[2020-11-18] MEDS ORDERED: Lidocaine -MPF 4% 5 ML AMPUL ONE (12:01)
[2020-11-18] MEDS ORDERED: Lidocaine 5% OINT 35 APPL/35.44 GM TUBE TP ONE (16:05)
[2020-11-18] MEDS ORDERED: Lidocaine Jelly 6ml 1 APPL/6 ML JEL.PF.APP ONE (16:06)
[2020-11-18] MEDS: Morphine Sulfate 2 MG/ML SYRINGE IVP PRN ×3 (16:29→16:48)
[2020-11-18] MEDS ORDERED: Gabapentin 300 MG CAPSULE PO PRN (17:35)
[2020-11-18] MEDS: Piperacillin/Tazobactam 3.375 GM in 0.9 % Sodium Chloride Mini Bag 100 ML IVPB SCH (18:42)
[2020-11-18] MEDS: Ibuprofen 600 MG TABLET PO SCH (18:43)
[2020-11-18] MEDS: 0.9 % Sodium Chloride 1,000 ML IVC SCH (18:43)
[2020-11-18 19:15] LABS: Basophils # 0.1 K/mcL (0.0-0.2); Basophils % 0.3 %; Eosinophils % 0.1 %; Hematocrit 42.4 % (37.5-50.1); Hemoglobin 13.4 g/dL (12.9-16.9); Immature Granulocytes % 0.5 % (0-4); Lymphocytes # 0.7 K/mcL (0.6-4.6); Lymphocytes % 4.4 %; Mean Corpuscular HGB Conc 31.6 g/dL (31.6-35.5); Mean Corpuscular Hemoglobin 28.1 pg (28.0-33.3); Mean Corpuscular Volume 88.9 fL (83.0-100.0); Mean Platelet Volume 9.7 fL (9.4-12.4); Monocytes # 0.8 K/mcL (0.0-1.3); Neutrophils # 14.8 K/mcL (1.6-8.9); Platelet Count 256 K/mcL (140-400); Red Blood Count 4.77 M/mcL (4.19-5.50); Red Cell Distribution Width 12.3 % (11.5-14.5); Segmented Neutrophils % 89.7 %; White Blood Count 16.5 K/mcL (4.3-11.1)
[2020-11-18] MEDS: diazePAM 5 MG TABLET PO PRN (21:38)
[2020-11-18] MEDS: *HR* OxyCODONE/APAP 5/325 TABLET PO PRN (21:38)
[2020-11-19] MEDS: Ibuprofen 600 MG TABLET PO SCH ×4 (00:36→17:51)
[2020-11-19] MEDS: Piperacillin/Tazobactam 3.375 GM in 0.9 % Sodium Chloride Mini Bag 100 ML IVPB SCH ×3 (02:37→17:52)
[2020-11-19] MEDS: 0.9 % Sodium Chloride 1,000 ML IVC SCH (03:04)
[2020-11-19] MEDS: *HR* OxyCODONE/APAP 5/325 TABLET PO PRN ×2 (05:57→15:24)
[2020-11-19] MEDS ORDERED: *HR* Enoxaparin 40 MG/0.4 ML SYRINGE SQ SCH (06:00)
[2020-11-19] MEDS: lisinopriL 5 MG TABLET PO SCH (09:01)
[2020-11-19 10:40] LABS: Basophils % 0.3 %; Eosinophils % 0.1 %; Hematocrit 41.7 % (37.5-50.1); Hemoglobin 13.3 g/dL (12.9-16.9); Immature Granulocytes % 0.3 % (0-4); Lymphocytes # 2.2 K/mcL (0.6-4.6); Lymphocytes % 16.2 %; Mean Corpuscular HGB Conc 31.9 g/dL (31.6-35.5); Mean Corpuscular Hemoglobin 28.2 pg (28.0-33.3); Mean Corpuscular Volume 88.5 fL (83.0-100.0); Monocytes # 1.4 K/mcL (0.0-1.3); Monocytes % 9.8 %; Neutrophils # 10.1 K/mcL (1.6-8.9); Platelet Count 267 K/mcL (140-400); Red Blood Count 4.71 M/mcL (4.19-5.50); Red Cell Distribution Width 12.5 % (11.5-14.5); Segmented Neutrophils % 73.3 %; White Blood Count 13.8 K/mcL (4.3-11.1)
[2020-11-19 11:00] LABS: BUN/Creatinine Ratio 12 (6-26); Blood Urea Nitrogen 14 mg/dL (6-20); Calcium 8.3 mg/dL (8.6-10.3); Carbon Dioxide 20 mEq/L (23-29); Chloride 105 mEq/L (98-107); Glucose 123 mg/dL (70-105); Magnesium 1.8 mg/dL (1.6-2.6); Osmolality,Calculated 282 (280-300); Phosphorous 3.1 mg/dL (2.7-4.5); Potassium 4.1 mEq/L (3.5-5.1); Sodium 135 mEq/L (136-145); eGFR For African Americans > 60 (> 60); eGFR For Non-African Americans > 60 (> 60)
[2020-11-19] MEDS: D5% in 0.45% NACL w KCl 20 MEQ/1,000 ML MLS IVC SCH (11:09)
[2020-11-19] MEDS: *HR* Rivaroxaban 10 MG TABLET PO SCH (11:10)
[2020-11-20] MEDS: D5% in 0.45% NACL w KCl 20 MEQ/1,000 ML MLS IVC SCH ×2 (00:02→13:02)
[2020-11-20] MEDS: Ibuprofen 600 MG TABLET PO SCH ×5 (00:05→17:55)
[2020-11-20] MEDS: Piperacillin/Tazobactam 3.375 GM in 0.9 % Sodium Chloride Mini Bag 100 ML IVPB SCH ×2 (02:23→09:26)
[2020-11-20] MEDS: *HR* OxyCODONE/APAP 5/325 TABLET PO PRN ×2 (02:28→09:26)
[2020-11-20] MEDS: *HR* Rivaroxaban 10 MG TABLET PO SCH (09:26)
[2020-11-20] MEDS: lisinopriL 5 MG TABLET PO SCH (09:26)
[2020-11-21] MEDS: Ibuprofen 600 MG TABLET PO SCH (06:00)
[2020-11-21 07:30] VITALS: BP 108/71
[2020-11-21] MEDS: *HR* Rivaroxaban 10 MG TABLET PO SCH (08:25)
[2020-11-21] MEDS: lisinopriL 5 MG TABLET PO SCH (08:26)
[2020-11-21] MEDS: diazePAM 5 MG TABLET PO PRN (10:00)
== END 2020-11-21 11:23 | disposition home or self-care (01) | DRG 230 ==
LOC: SAMDAY 09:52 → 3ANU 17:32
PROVIDERS: ADMIT Surgery; ATTEND Surgery

== ENCOUNTER 2020-11-29 00:31 | Observation (INO) ==
[2020-11-29 03:06] LABS: Basophils # 0.1 K/mcL (0.0-0.2); Basophils % 0.5 %; Eosinophils # 0.3 K/mcL (0.0-0.6); Eosinophils % 2.2 %; Hematocrit 31.9 % (37.5-50.1); Immature Granulocytes % 0.6 % (0-4); Lymphocytes % 20.8 %; Mean Corpuscular HGB Conc 31.3 g/dL (31.6-35.5); Mean Corpuscular Hemoglobin 27.9 pg (28.0-33.3); Mean Corpuscular Volume 89.1 fL (83.0-100.0); Mean Platelet Volume 9.3 fL (9.4-12.4); Monocytes # 1.3 K/mcL (0.0-1.3); Monocytes % 9.2 %; Neutrophils # 9.7 K/mcL (1.6-8.9); Platelet Count 388 K/mcL (140-400); Red Blood Count 3.58 M/mcL (4.19-5.50); Red Cell Distribution Width 11.8 % (11.5-14.5); Segmented Neutrophils % 66.7 %; White Blood Count 14.6 K/mcL (4.3-11.1)
[2020-11-29 03:22] LABS: BUN/Creatinine Ratio 12 (6-26); Blood Urea Nitrogen 12 mg/dL (6-20); Calcium 8.6 mg/dL (8.6-10.3); Carbon Dioxide 26 mEq/L (23-29); Chloride 101 mEq/L (98-107); Glucose 119 mg/dL (70-105); Osmolality,Calculated 283 (280-300); Potassium 3.6 mEq/L (3.5-5.1); Sodium 136 mEq/L (136-145); eGFR For African Americans > 60 (> 60); eGFR For Non-African Americans > 60 (> 60)
[2020-11-29] MEDS ORDERED: Pantoprazole 80 MG in 0.9 % Sodium Chloride 50 ML IVPB ONE (04:21)
[2020-11-29] MEDS ORDERED: Ondansetron 4 MG/2 ML VIAL IVP PRN (05:58)
[2020-11-29] MEDS ORDERED: Acetaminophen 325 MG TABLET PO PRN (05:58)
[2020-11-29] MEDS ORDERED: Naloxone 0.4 MG/ML INJ IVP PRN (05:58)
[2020-11-29] MEDS ORDERED: 0.9 % Sodium Chloride 1,000 ML IVC SCH (06:00)
[2020-11-29 07:25] VITALS: O2SAT 94
[2020-11-29] MEDS ORDERED: *HR* OxyCODONE Immed Rel 5 MG TABLET PO PRN (08:34)
[2020-11-29] MEDS ORDERED: diazePAM 5 MG TABLET PO PRN (08:34)
[2020-11-29] MEDS ORDERED: lisinopriL 5 MG TABLET PO SCH (09:00)
[2020-11-29] MEDS ORDERED: Folic Acid 1 MG TABLET PO SCH (09:00)
[2020-11-29] MEDS ORDERED: NON-FORMULARY MEDICATION 1 EACH EACH (Rivaroxaban [Xarelto] 20 MG Tablet) PO SCH (09:00)
[2020-11-29] MEDS ORDERED: Gabapentin 300 MG CAPSULE PO PRN (09:04)
[2020-11-29 09:05] LABS: Bilirubin,Urine Negative (Negative); Blood,Urine Negative (Negative); Clarity,Urine Clear (Clear); Color,Urine Light-Yellow (Yellow); Glucose,Urine (UA) Normal (Normal); Ketones,Urine Negative (Negative); Leukocyte Esterase,Urine Negative (Negative); Nitrite,Urine Negative (Negative); Protein,Urine Negative (Neg-Trace); Specific Gravity,Urine 1.015 (1.010-1.025); Urobilinogen,Urine Normal (Normal)
[2020-11-29] MEDS ORDERED: polyethylene glycoL 3350 17 GM POWD.PACK PO SCH (09:30)
[2020-11-29 10:13] LABS: Basophils # 0.1 K/mcL (0.0-0.2); Basophils % 0.9 %; Eosinophils # 0.4 K/mcL (0.0-0.6); Eosinophils % 3.4 %; Hematocrit 34.6 % (37.5-50.1); Immature Granulocytes % 0.7 % (0-4); Lymphocytes # 2.5 K/mcL (0.6-4.6); Lymphocytes % 21.7 %; Mean Corpuscular HGB Conc 31.8 g/dL (31.6-35.5); Mean Corpuscular Hemoglobin 28.1 pg (28.0-33.3); Mean Corpuscular Volume 88.5 fL (83.0-100.0); Mean Platelet Volume 9.2 fL (9.4-12.4); Monocytes # 1.1 K/mcL (0.0-1.3); Monocytes % 9.3 %; Neutrophils # 7.4 K/mcL (1.6-8.9); Platelet Count 331 K/mcL (140-400); Red Blood Count 3.91 M/mcL (4.19-5.50); Red Cell Distribution Width 11.9 % (11.5-14.5); White Blood Count 11.5 K/mcL (4.3-11.1)
[2020-11-29 10:17] VITALS: BP 115/75; PULSE 66; TEMP 98.2
[2020-11-29 10:21] LABS: INR 1.4; Prothrombin Time 15.8 Seconds (9.4-12.1)
[2020-11-29] MEDS ORDERED: Ondansetron ODT 4 MG TAB.RAPDIS SL PRN (12:00)
== END 2020-11-29 17:16 | disposition home or self-care (01) ==
LOC: 3ANU 00:31 → EMEROOARM 00:31 → 3ANU 06:15
PROVIDERS: ADMIT Surgery; ATTEND Surgery